=== PATIENT | male | born 1935 | race Caucasian/White ===

== ENCOUNTER 2017-03-10 11:07 | Outpatient (CLI) | payer MEDICARE | END 2017-03-10 11:08 | disposition home or self-care (01) | LOC: BICRAD 11:07 | PROVIDERS: ATTEND Family Medicine | DX: J18.0 Bronchopneumonia, unspecified organism (principal) | CPT/HCPCS: 36415; 71046; 80053; 85025 ==

== ENCOUNTER 2017-06-03 13:13 | Emergency (ER) | payer MEDICARE ==
--- NOTE | 2017-06-03 14:36 | RAD ---
CHEST ONE VIEW: HISTORY: Fever. Multiple falls. COMPARISON: None. FINDINGS: Normal cardiac silhouette. The pulmonary vessels and hilum are normal. The costophrenic angles are clear. The lungs are hyperinflated. There appears to be an infiltrate involving the inferior right upper lobe. No pneumothorax. Chronic changes in both shoulders. IMPRESSION: Right upper lobe infiltrate. Continued surveillance. POS: [facility]
--- NOTE | 2017-06-03 14:39 | CT ---
HEAD CT WITHOUT CONTRAST: 06/03/2017 HISTORY: Pain. Falls. Tremor. COMPARISON: None. TECHNIQUE: Serial axial CT imaging at 5 mm intervals from the vertex through the skull base without contrast. FINDINGS: Incidental note made of a cavum septum pellucidum. The imaged paranasal sinuses/mastoid air cells are well aerated. There is no displaced calvarial fra cture. There is atherosclerotic calcification of the cavernous carotid arteries. No intracranial hemorrhage, midline shift, or mass effect. There is mild prominence of the ventricul ar system, primarily the lateral ventricles. IMPRESSION: Mild prominence of the lateral ventricles, slightly out of proportion to the degree of cerebral volum e loss. This could potentially represent normal pressure hydrocephalus in the proper clinical settin g. There is no acute finding seen. POS: [facility]
[2017-06-03 14:49] LABS: INR-International Normal Ratio 1.2; PTT 34.8 SEC (22.9-36.1); Prothrombin Time 15.7 SEC (12.0-14.7)
[2017-06-03 14:55] LABS: #Eosinphils 0.1 thou/uL (0.0-0.7); #Lymphocytes 1.3 thou/uL (1.20-3.40); #Monocytes 0.7 thou/uL (0.11-0.59); #Neutrophils 5.1 thou/uL (1.40-6.50); %Eosinophils 0.8 % (0.0-10.0); %Lymphocytes 18.7 % (21.0-51.0); %Monocytes 9.5 % (0.0-10.0); %Neutrophils 70.9 % (42.0-75.0); Hemoglobin 10.7 g/dL (14.0-18.0); Mean Corpuscular HGB CONC 35.4 g/dL (32.0-36.0); Mean Corpuscular Hemoglobin 33.9 pg (27.0-31.0); Mean Corpuscular Volume 95.9 fl (80.0-94.0); Platelet Count 116 thou/uL (130-400); RBC Distribution Width 11.7 % (11.5-14.5); Red Blood Cell (RBC) Count 3.17 mill/uL (4.70-6.10); White Blood Cell (WBC) Count 7.2 thou/uL (4.8-10.8)
[2017-06-03 15:02] LABS: Anion Gap 11 mmol/L (10-20); BUN (Urea Nitrogen) 27 mg/dL (8.4-25.7); Calc. Creatinine Clearance 0 mL/min (70-130); Calcium 8.9 mg/dL (7.8-10.44); Carbon Dioxide 26 mmol/L (23-31); Chloride 101 mmol/L (98-107); Estimated GFR-MDRD 41; Glucose 172 mg/dL (83-110); Potassium 3.9 mmol/L (3.5-5.1); Sodium 134 mmol/L (136-145)
[2017-06-03 15:04] LABS: MDiff Complete? YES; PLT Morphology Comment Appears Decreased; Polychromasia SLIGHT = 2-3 cells (100X) (0-2/hpf)
[2017-06-03] MEDS ORDERED: Acetaminophen 500 MG TAB ONE (16:00)
[2017-06-03 16:03] LABS: Bilirubin Negative (Negative); Blood, Urine Small (Negative); Clarity Clear (Clear); Glucose, Urine (Dipstick) Negative (Negative); Leukocyte Negative (Negative); Nitrite Negative (Negative); Protein, Urine (Dipstick) 100 mg/dL (Neg-Trace); Urobilinogen 0.2 mg/dL (0.2-1.0); pH, Urine 6.5 (5.0-9.0)
[2017-06-03 16:05] LABS: Bacteria/HPF None Seen HPF (None Seen); Hyaline Casts/LPF 0-3 HYALINE CAST LPF (0-3 Hyaline); Pathc Cast-AUWi Flag 0.43 (0-2.49); Squamous Epithelial 0-3 HPF (0-3); WBC/HPF 0-3 HPF (0-3)
== END 2017-06-03 16:20 | disposition home or self-care (01) ==
LOC: ERS 13:13
DX: E86.0 Dehydration (principal); J18.9 Pneumonia, unspecified organism; I10 Essential (primary) hypertension; Z87.891 Personal history of nicotine dependence; Z79.899 Other long term (current) drug therapy
CPT/HCPCS: 36415; 70450; 71045; 80048; 81003; 81015; 85025; 85610; 85730; 99214; G0463

== ENCOUNTER 2017-11-17 15:14 | Outpatient (CLI) | payer MEDICARE ==
--- NOTE | 2017-11-17 17:57 | RAD ---
TWO VIEWS RIGHT KNEE: HISTORY: Pain. Multiple falls. FINDINGS: Moderate tricompartmental degenerative change. There is a small suprapatellar fusion. There is diff use bone demineralization. Definite fracture is not appreciated. Vascular calcifications are noted. IMPRESSION: No fracture. Additional findings as above. POS: [facility]
== END 2017-11-17 15:15 | disposition home or self-care (01) ==
LOC: BICRAD 15:14
PROVIDERS: ATTEND Physician Assistant
DX: M25.561 Pain in right knee (principal); R29.6 Repeated falls

== ENCOUNTER 2018-11-20 07:51 | Outpatient (CLI) | payer MEDICARE ==
--- NOTE | 2018-11-20 08:20 | RAD ---
TWO VIEW CHEST: COMPARISON: Reference is made to 06/03/2017. INDICATION: Cough. FINDINGS: The lungs are mildly hyperinflated. A small patchy opacity is seen at the left lung bas. Hemidiaphr agms are flattened. Cardiac silhouette is within normal limits of size. Pulmonary vasculature is st able. IMPRESSION: 1. Chronic obstructive pulmonary disease. 2. Mild focal patchy opacity at the left lung base which may e on the basis of atelectasis or scar. POS: [facility]
== END 2018-11-20 07:52 | disposition home or self-care (01) ==
LOC: BICRAD 07:51
PROVIDERS: ATTEND Family Medicine
DX: R05 Cough (principal); J44.9 Chronic obstructive pulmonary disease, unspecified
CPT/HCPCS: 36415; 71046; 81001; 83036; 83540; 83550; 84443; G0103

== ENCOUNTER 2019-03-30 10:10 | Outpatient (CLI) | payer MEDICARE, OTHER ==
--- NOTE | 2019-03-30 10:34 | ULT ---
US Abdominal Aorta HISTORY: Screening for abdominal aortic aneurysm COMPARISON: None. FINDINGS: Maximum AP diameter of the abdominal aorta is in the mid portion measuring about 1.9 cm IMPRESSION: No evidence of abdominal aortic aneurysm
== END 2019-03-30 10:11 | disposition home or self-care (01) ==
LOC: BICULT 10:10
PROVIDERS: ATTEND Family Medicine
DX: I71.4 Abdominal aortic aneurysm, without rupture (principal)
CPT/HCPCS: 76775

== ENCOUNTER 2019-11-26 13:41 | Outpatient (CLI) | payer MEDICARE, OTHER ==
--- NOTE | 2019-11-26 15:21 | CT ---
CT chest noncontrast HISTORY: Cough. FINDINGS: Lungs are hyperinflated. No focal inflammation evident. Minimal scattered peripheral inters titial thickening to the pleural surface. A 0.5 cm noncalcified nodule at the lateral aspect of the right upper lobe abuts the pleura. Small amount of mucous adherent to the right mid tracheal wall. Old chronic appearing injury to the right lateral mid ribs. There are degenerative changes throughout the thoracic spine. Chronic appearing compression of the L2 superior endplate is partially visualized on the inferior most images. There is prominent calcification within the arterial structures including narrowing of the lumen at t he origin of the left subclavian artery. IMPRESSION : No inflammation or other active pulmonary abnormalities are evident. Pulmonary hyperinflation. Prominent atherosclerosis. 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
== END 2019-11-26 13:42 | disposition home or self-care (01) ==
LOC: BICCT 13:41
PROVIDERS: ATTEND Family Medicine
DX: R05 Cough (principal); I70.90 Unspecified atherosclerosis; J98.4 Other disorders of lung
CPT/HCPCS: 71250

== ENCOUNTER 2019-12-06 19:03 | Inpatient (IN) | payer MEDICARE, OTHER ==
[2019-12-06] MEDS ORDERED: Vancomycin 1 GM/200 ML BAG ONE (19:52)
[2019-12-06] MEDS ORDERED: Guaifenesin DM 100-10/5 ML UDCUP PO PRN (20:10)
[2019-12-06 21:12] LABS: SARS-CoV-2 NAA Rapid Test Not Detected (NotDetected)
--- NOTE | 2019-12-06 22:03 | PDOC.EVN ---
Event Note - Event Note Event Note: [id number] HP dictated
[2019-12-07] MEDS ORDERED: Famotidine/PF 20 mg/2ml Vial ONE ×2 (00:20→11:43)
[2019-12-07] MEDS: Sodium Chloride 0.9% 1,000 ML IV SCH ×3 (00:37→20:10)
[2019-12-07] MEDS: Famotidine/PF 20 mg/2ml Vial SLOW IVP SCH ×3 (00:38→20:10)
--- NOTE | 2019-12-07 01:08 | HP ---
CHIEF COMPLAINT: Fever and ? possible sepsis. HISTORY OF PRESENT ILLNESS: Mr. Henderson is an 84-year-old male, who was transferred from [facility] for possible sepsis. Initially, the patient's vital signs at an outside hospital were normotensive with marked tachycardia at 102. The patient is a poor historian. As per records, the patient received 2.5 L of NS and 2 g of Rocephin and 500 mg of azithromycin for presumed ?? pneumonia. The patient was sent to our medical facility for possible sepsis or possible COVID-19. Workup in the emergency room, it was found that the patient's hemoglobin is low at 8.6, baseline around 10.3. Creatinine was 1.5 and glucose was 200 without anion gap. UA is negative. Chest x-ray is also unremarkable. COVID-19 test results are pending. The patient is being admitted to hospital for further management. PAST MEDICAL HISTORY: 1. Hyperparathyroidism. 2. Hyperlipidemia. 3. Hypertension. PAST SURGICAL HISTORY: Bilateral hand surgery. SOCIAL HISTORY: Denies alcohol use. Denies drug use. He is a former tobacco user. He used to smoke cigarettes. FAMILY HISTORY: Reviewed, noncontributory. HOME MEDICATIONS: Please see home medication reconciliation form for updated medications. ALLERGIES: ALLERGIC TO PENICILLIN. REVIEW OF SYSTEMS: Review of 14 systems negative except what is mentioned in history of present illness. PHYSICAL EXAMINATION: GENERAL: The patient is awake, alert, does not appear to be in acute distress. VITAL SIGNS: Blood pressure is 176/71, pulse is 82, respiratory rate is 18, temperature is 98.7, oxygen saturation is 98% on room air. HEAD AND NECK: Normocephalic, atraumatic. NECK: Supple. No JVD. CHEST: Fair bilateral air entry. HEART: S1, S2. Regular. ABDOMEN: Soft, nontender. Bowel sounds present. NEUROLOGIC: Awake, alert, hard of hearing, moving extremities. PSYCH: Unable to assess. EXTREMITIES: No clubbing or cyanosis. LABORATORY DATA: WBC 11.4, hemoglobin 8.6, MCV is 92, platelets 216. Chemistry; sodium 141, potassium 4.2, BUN is 29, creatinine 1.52. COVID-19 test is negative. UA is unremarkable. ASSESSMENT: 1. Suspected sepsis?? no obvious source at this time. 2. Anemia. The patient's hemoglobin 10.7 and currently is 8.6, we will monitor. 3. Acute kidney injury. 4. Hypertension. 5. Hyperlipidemia. 6. History of hyperparathyroidism. PLAN: 1. Admit. 2. IV fluid hydration. 3. The patient was given IV antibiotics in the emergency room. At this time, the patient does not appear septic. His vitals are stable. We will continue to monitor overnight. Reassess the patient in a.m. 4. Monitor kidney function and urine output. 5. Monitor hemoglobin and hematocrit. 6. Reconcile home medications. 7. DVT prophylaxis as appropriate. 8. Expected length of stay, at least 1 midnight if the patient is stable. Job ID: [id number]
[2019-12-07 04:38] LABS: #Eosinphils 0.1 thou/uL (0.0-0.7); #Lymphocytes 1.1 thou/uL (1.20-3.40); #Monocytes 0.9 thou/uL (0.11-0.59); #Neutrophils 8.6 thou/uL (1.40-6.50); %Basophils 0.3 % (0.0-1.0); %Eosinophils 0.6 % (0.0-10.0); %Lymphocytes 9.9 % (21.0-51.0); %Monocytes 8.3 % (0.0-10.0); Hemoglobin 8.7 g/dL (14.0-18.0); Mean Corpuscular HGB CONC 32.7 g/dL (32.0-36.0); Mean Corpuscular Hemoglobin 29.9 pg (27.0-31.0); Mean Corpuscular Volume 91.5 fL (78.0-98.0); Mean Platelet Volume 8.2 fL (7.4-10.4); Platelet Count 209 thou/uL (130-400); RBC Distribution Width 13.8 % (11.5-14.5); White Blood Cell (WBC) Count 10.6 thou/uL (4.8-10.8)
[2019-12-07 04:56] LABS: ALT (SGPT) 13 U/L (8-55); AST (SGOT) 19 U/L (5-34); Albumin 2.9 g/dL (3.4-4.8); Alkaline Phosphatase 67 U/L (40-110); Anion Gap 12 mmol/L (10-20); BUN (Urea Nitrogen) 22 mg/dL (8.4-25.7); Bilirubin, Total 0.5 mg/dL (0.2-1.2); Calc. Creatinine Clearance 0 mL/min (70-130); Calcium 8.4 mg/dL (7.8-10.44); Carbon Dioxide 22 mmol/L (23-31); Chloride 111 mmol/L (98-107); Estimated GFR-MDRD 66; Globulin 3.2 g/dL (2.4-3.5); Glucose 147 mg/dL (83-110); Protein, Total 6.1 g/dL (5.8-8.1); Sodium 141 mmol/L (136-145)
--- NOTE | 2019-12-07 12:22 | PDOC.HOSPP ---
- Subjective Encounter Date: 12/07/19 Encounter Time: 10:00 Subjective: feels better, has cough but no sputum production no trouble passing urine no chest pain or palp no diarrhea or nausea says he feels weak overall and has not ambulated much from last 2 days - Objective Result Diagrams: 12/07/19 04:23 12/07/19 04:23 Hospitalist ROS - Medication Medications: Active Medications Generic Name Dose Route Start Last Admin Trade Name Freq PRN Reason Stop Dose Admin Famotidine 20 mg 12/06/19 21:00 12/07/19 12:16 Famotidine/Pf 20 Mg/2ml Vial SLOW IVP 20 mg Q12HR PIERCE Administration Sodium Chloride 1,000 mls @ 75 mls/hr 12/06/19 20:15 12/07/19 11:42 Normal Saline 0.9% IV 1,000 mls .[id number] PIERCE Administration - Exam General Appearance: awake alert Eye: PERRL, anicteric sclera ENT: no oropharyngeal lesions, moist mucosa Neck: supple, no JVD Heart: RRR, no murmur Respiratory: no wheezes, no rales Gastrointestinal: soft, non-tender, non-distended, normal bowel sounds Extremities: no cyanosis, no edema Neurological: cranial nerve grossly intact, no focal deficits Hosp A/P (1) Moderate dehydration Code(s): E86.0 - DEHYDRATION Status: Resolved (2) TALON (acute kidney injury) Code(s): N17.9 - ACUTE KIDNEY FAILURE, UNSPECIFIED Status: Acute (3) Fever Code(s): R50.9 - FEVER, UNSPECIFIED Status: Acute Qualifiers: Fever type: unspecified Qualified Code(s): R50.9 - Fever, unspecified (4) HTN (hypertension) Code(s): I10 - ESSENTIAL (PRIMARY) HYPERTENSION Status: Chronic Qualifiers: Hypertension type: essential hypertension Qualified Code(s): I10 - Essential (primary) hypertension (5) Anemia Code(s): D64.9 - ANEMIA, UNSPECIFIED Status: Acute Qualifiers: Anemia type: unspecified type Qualified Code(s): D64.9 - Anemia, unspecified (6) Moderate protein malnutrition Code(s): E44.0 - MODERATE PROTEIN-CALORIE MALNUTRITION Status: Chronic (7) FTT (failure to thrive) in adult Status: Chronic - Plan iron studies await culture results, no obvious source echo h/h this evening, no bleeding per patient hemostable will f/u
[2019-12-07 13:38] VITALS: BMI 21.4
[2019-12-07] MEDS: Acetaminophen 325 MG TAB PO PRN (20:14)
[2019-12-08] MEDS: Famotidine/PF 20 mg/2ml Vial SLOW IVP SCH ×2 (08:29→21:54)
[2019-12-08] MEDS: Sodium Chloride 0.9% 1,000 ML IV SCH ×2 (08:32→21:55)
[2019-12-08] MEDS ORDERED: FLU VACC QS2020-21(65YR UP)/PF 240 MCG/0.7 ML SYRINGE IM ONE (09:00)
--- NOTE | 2019-12-08 12:50 | PDOC.HOSPP ---
- Subjective Encounter Date: 12/08/19 Encounter Time: 08:00 Subjective: c/o pain in left knee, cannot flex it, says its more on top of knee area no sob, cough or abd pain has not ambulated yet - Objective Vital Signs & Weight: Vital Signs (12 hours) Temp Pulse Resp BP Pulse Ox 12/08/19 11:55 99.0 F 93 20 190/80 H 20 L 12/08/19 08:00 99.6 F 97 20 174/70 H 99 12/08/19 05:16 97.8 F 96 20 183/71 H 99 Weight Admit Weight 141 lb 3 oz Weight 141 lb 3 oz I&O: 12/07/19 12/08/19 12/09/19 06:59 06:59 06:59 Intake Total 1220 240 Output Total 350 Balance 870 240 Result Diagrams: 12/07/19 04:23 12/07/19 04:23 Hospitalist ROS - Medication Medications: Active Medications Generic Name Dose Route Start Last Admin Trade Name Freq PRN Reason Stop Dose Admin Acetaminophen 650 mg 12/06/19 20:10 12/07/19 20:14 Acetaminophen 325 Mg Tab PO 650 mg Q4H PRN Administration Headache/Fever/Mild Pain (1-3) Famotidine 20 mg 12/06/19 21:00 12/08/19 08:29 Famotidine/Pf 20 Mg/2ml Vial SLOW IVP 20 mg Q12HR PIERCE Administration Sodium Chloride 1,000 mls @ 75 mls/hr 12/06/19 20:15 12/08/19 08:32 Normal Saline 0.9% IV 1,000 mls .[id number] PIERCE Administration - Exam General Appearance: awake alert Eye: PERRL, anicteric sclera ENT: no oropharyngeal lesions, moist mucosa Neck: supple, no JVD Heart: RRR, no murmur Respiratory: no wheezes, no rales Gastrointestinal: soft, non-tender, non-distended, normal bowel sounds Extremities: no edema Extremities - other findings: left knee is tender to touch and a bit warm, may have mild effusion Neurological: cranial nerve grossly intact, no focal deficits Psychiatric: A&O x 3 Hosp A/P (1) Fever Code(s): R50.9 - FEVER, UNSPECIFIED Status: Acute Qualifiers: Fever type: unspecified Qualified Code(s): R50.9 - Fever, unspecified (2) Moderate dehydration Code(s): E86.0 - DEHYDRATION Status: Resolved (3) TALON (acute kidney injury) Code(s): N17.9 - ACUTE KIDNEY FAILURE, UNSPECIFIED Status: Resolved (4) HTN (hypertension) Code(s): I10 - ESSENTIAL (PRIMARY) HYPERTENSION Status: Chronic Qualifiers: Hypertension type: essential hypertension Qualified Code(s): I10 - Essential (primary) hypertension (5) Anemia Code(s): D64.9 - ANEMIA, UNSPECIFIED Status: Chronic Qualifiers: Anemia type: unspecified type Qualified Code(s): D64.9 - Anemia, unspecified (6) Moderate protein malnutrition Code(s): E44.0 - MODERATE PROTEIN-CALORIE MALNUTRITION Status: Chronic (7) FTT (failure to thrive) in adult Status: Chronic - Plan iron studies fever of 100, await culture results, ?left knee bursitis/septic arthritis/pseudogout echo no bleeding per patient hemostable start on levaquin in view of persistent off and on fever. d/w ortho, knee xrays
[2019-12-08 14:23] LABS: #Lymphocytes 1.3 thou/uL (1.20-3.40); #Neutrophils 12.1 thou/uL (1.40-6.50); %Eosinophils 0.2 % (0.0-10.0); %Lymphocytes 8.8 % (21.0-51.0); %Monocytes 7.1 % (0.0-10.0); %Neutrophils 83.9 % (42.0-75.0); Mean Corpuscular HGB CONC 33.7 g/dL (32.0-36.0); Mean Corpuscular Hemoglobin 30.8 pg (27.0-31.0); Mean Corpuscular Volume 91.5 fL (78.0-98.0); Mean Platelet Volume 8.2 fL (7.4-10.4); Platelet Count 258 thou/uL (130-400); RBC Distribution Width 13.7 % (11.5-14.5); Red Blood Cell (RBC) Count 3.23 mill/uL (4.70-6.10); White Blood Cell (WBC) Count 14.4 thou/uL (4.8-10.8)
[2019-12-08 14:43] LABS: ALT (SGPT) 16 U/L (8-55); AST (SGOT) 24 U/L (5-34); Albumin 2.9 g/dL (3.4-4.8); Alkaline Phosphatase 71 U/L (40-110); Anion Gap 13 mmol/L (10-20); BUN (Urea Nitrogen) 20 mg/dL (8.4-25.7); Bilirubin, Total 0.6 mg/dL (0.2-1.2); Calc. Creatinine Clearance 45 mL/min (70-130); Calcium 8.5 mg/dL (7.8-10.44); Carbon Dioxide 24 mmol/L (23-31); Chloride 105 mmol/L (98-107); Estimated GFR-MDRD 63; Globulin 3.5 g/dL (2.4-3.5); Glucose 158 mg/dL (83-110); Iron 13 ug/dL (65-175); Iron Binding Capacity, Total 144 mcg/dL (261-462); Potassium 3.7 mmol/L (3.5-5.1); Protein, Total 6.4 g/dL (5.8-8.1); Sodium 138 mmol/L (136-145)
[2019-12-08] MEDS: Ibuprofen 200 MG TAB PO SCH ×2 (14:58→21:54)
[2019-12-08 15:08] LABS: Ferritin 260.25 ng/mL (22-322)
--- NOTE | 2019-12-08 17:49 | RAD ---
LEFT KNEE FOUR VIEWS: 12/08/19 HISTORY: Knee pain. There are marked arthritic changes of the knee with tricompartment degenerative changes and chondroca lcinosis. There is a deformity to the superolateral aspect of the patella. This is not felt to repres ent an acute injury. 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 No joint effusion. IMPRESSION: Marked arthritic change of the knee. No acute injury. POS: OFF
--- NOTE | 2019-12-08 17:53 | RAD ---
LEFT KNEE THREE VIEWS: 12/08/19 HISTORY: Knee pain. There are moderate arthritic changes of the knee. Medial compartment narrowing. Degenerative spur for mation of the patellofemoral joint space. There is a joint effusion present. The bones are diffusely demineralized. I do not appreciate any fracture. Atherosclerotic changes are noted. Some soft tissue swelling is seen anterior to the knee. IMPRESSION: Joint effusion with moderate arthritic change. No definite acute injury. Chondrocalcinosis. POS: OFF
[2019-12-09] MEDS: Famotidine/PF 20 mg/2ml Vial SLOW IVP SCH (08:33)
[2019-12-09] MEDS: Sodium Chloride 0.9% 1,000 ML IV SCH (08:34)
[2019-12-09] MEDS: Ibuprofen 200 MG TAB PO SCH (08:45)
[2019-12-09] MEDS ORDERED: Iopamidol-370 76% 500 ML 1 ML ONE (10:10)
--- NOTE | 2019-12-09 10:13 | CON ---
DATE OF CONSULTATION: 12/09/2019 REASON FOR CONSULTATION: Evaluate for bilateral septic knees. REQUESTING PHYSICIAN: [facility]. CONSULTING PHYSICIAN: Carter Springer. HISTORY OF PRESENT ILLNESS: This is an 84-year-old male, who was transferred here for admission from [facility] for possible sepsis. The patient has been worked up by the hospitalist group. He has some complaints of bilateral knee pain and we were asked to see the patient to further evaluate for this. The patient was seen yesterday briefly before obtaining knee x-rays. At that time, he told me he has had ongoing bilateral knee pain for a number of years. This is not any worse than normal currently. He states that he does not walk much, and when he does ambulate he has to have assistance with some sort of device, mainly a cane or a walker. Also reports he has a known history of severe arthritis in both knees. Today, the patient has been seen again. He reports some improvement since yesterday. States knee pain worse in the last couple of weeks. Knee x-rays have been performed which has also been reviewed by our service. He describes pain is pretty much equal on both knees. One is not greater than the other. He has not ambulated much since he has been in the hospital. PAST MEDICAL HISTORY: Significant for hyperparathyroidism, hyperlipidemia, and hypertension. PAST SURGICAL HISTORY: Bilateral hand surgery. SOCIAL HISTORY: The patient denies any alcohol or drug use. He is a former smoker. He ambulates with a cane majority of the time. FAMILY HISTORY: Reviewed and noncontributory. ALLERGIES: PENICILLIN. REVIEW OF SYSTEMS: Ten-point review of systems conducted and negative otherwise stated above. PHYSICAL EXAMINATION: VITAL SIGNS: Current vital signs including temperature of 98.6, pulse of 86, respiratory rate of 18, O2 saturation of 99% on room air, and blood pressure 173/66. GENERAL: The patient is awake and alert. He is pleasant and cooperative with exam at this time. He answers all questions appropriately. HEENT: Head is normocephalic and atraumatic. NECK: Supple. Trachea midline. Breathing is nonlabored. EXTREMITIES: Evaluation of bilateral lower extremities shows flexion contractures bilaterally. On the left, the patient has a small palpable knee effusion. No overlying erythema. This is mildly tender to palpation. He is able to flex approximately 30 degrees. He is able to perform a straight leg raise. He does have a flexion contracture to approximately 30 degrees. Distal neurovascular status intact. On the right lower extremity, the patient also has a flexion contracture around 30 degrees. He has a large palpable osteophyte on the superior lateral border of the patella. This is nontender to palpation. He has very little motion in this knee as well. No erythema. No palpable joint effusion. Distal neurovascular status intact. He is able to perform a straight leg raise. RADIOGRAPHIC IMAGING: Reviewed at this time including views of both knees demonstrate views of the right knee which show marked tricompartmental osteoarthritis with [id number] disease. There is chondrocalcinosis. 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 No acute findings. Views of the left knee also show marked arthritis mainly in the medial compartment. There is also patellofemoral joint osteoarthritis and a joint effusion present. No acute findings. ASSESSMENT: Bilateral knee pain in a patient admitted for sepsis. PLAN: At this time, the patient does appear to have severe osteoarthritis in both knees. He does have a joint effusion present on the left, however, I believe this is likely related to his osteoarthritis. He does not show signs of septic arthritis at this time. He has had long-standing knee pain. I do not believe this is the source of his fever at this time. He may continue to ambulate as tolerated with assistance. Orthopedics will sign off for now, but if there are future concerns, please reconsult our group. Job ID: [id number] MTDD
--- NOTE | 2019-12-09 10:34 | CT ---
EXAM: CT chest, abdomen, and pelvis with IV contrast: HISTORY: Fever, unknown source. COMPARISON: Noncontrast CT thorax on 11/26/2019 FINDINGS: CT THORAX: Lungs: A pleural-based 5 mm pulmonary nodule lateral aspect right upper lobe is again seen and stable in appearance. No additional discrete pulmonary nodule or mass is seen. No consolidation is identified. Pleura: Tiny bilateral pleural effusions and associated passive atelectasis are now seen. Lymph nodes: No enlarged lymph nodes are seen by CT size criteria. Nonspecific mild increase in bilat eral hilar lymph nodes is noted but is a stable finding. Mediastinum: Vascular calcifications are seen in the coronary arteries as well as involving the thora cic aorta: Prominent vascular calcifications involving the origin and proximal left subclavian artery. There is a small pericardial effusion which has mildly increased compared to prior exam. Chest wall: No abnormalities CT ABDOMEN AND PELVIS: Liver: Within normal limits. Gallbladder: Decompressed.\ Pancreas: Within normal limits. Spleen: Within normal limits. Adrenal glands: Within normal limits. Kidneys: Within normal limits. Urinary Bladder: The urinary bladder is unremarkable. Reproductive organs: Within normal limits for patient's age. Bowel: Small to moderate amount retained fecal material seen in the ascending and transverse colon. L oops of small bowel are normal in caliber. Adenopathy:No lymphadenopathy within the abdomen or pelvis. Peritoneum: Small amount of free fluid is seen in a presacral location with a minimal adjacent strand ing as well. There is minimal amount of free fluid in each paracolic gutter. Nonspecific perinephric stranding is seen which is symmetric in appearance. Abdominal wall: No abnormalities seen. Osseous structures: Indeterminate age wedge-shaped compression fracture L2 vertebral body with approx imately 40-50% loss of height anteriorly. Multilevel degenerative changes are seen in the spine. Bilateral glenohumeral osteoarthropathy is present. IMPRESSION: 1. Minimal bilateral pleural effusions and associated passive atelectasis. 2. Small pericardial effusion. 3. Stable approximately 5 mm right upper lobe pleural-based pulmonary nodule. 4. Small amount of fluid and stranding in the presacral location with minimal fluid in each paracolic gutter. 5. Prominent vascular calcifications involving the coronary arteries as well as the thoracic and abdo sunitha aorta and origin of the great vessels. 6. Indeterminate age compression fracture L2 vertebral body. This compression fracture was partially imaged on study of 11/26/2019.
--- NOTE | 2019-12-09 11:59 | PDOC.HOSPP ---
- Subjective Encounter Date: 12/09/19 Encounter Time: 07:15 Subjective: knee pain is better today including left no cough or abd pain he fell yesterday while trying to fel[place] to other side of his commode to take a phone call - Objective Vital Signs & Weight: Vital Signs (12 hours) Temp Pulse Resp BP Pulse Ox 12/09/19 08:00 99 12/09/19 07:43 98.6 F 86 18 173/66 H 99 12/09/19 04:00 98.3 F 83 20 154/74 H 99 12/09/19 01:11 159/66 H 12/09/19 00:00 97.9 F 79 20 170/77 H 99 Weight Admit Weight 141 lb 3 oz Weight 141 lb 3 oz I&O: 12/08/19 12/09/19 12/10/19 06:59 06:59 06:59 Intake Total 1220 720 Output Total 350 620 Balance 870 100 Result Diagrams: 12/08/19 13:59 12/08/19 13:59 Hospitalist ROS - Medication Medications: Active Medications Generic Name Dose Route Start Last Admin Trade Name Freq PRN Reason Stop Dose Admin Acetaminophen 650 mg 12/06/19 20:10 12/07/19 20:14 Acetaminophen 325 Mg Tab PO 650 mg Q4H PRN Administration Headache/Fever/Mild Pain (1-3) Famotidine 20 mg 12/06/19 21:00 12/09/19 08:33 Famotidine/Pf 20 Mg/2ml Vial SLOW IVP 20 mg Q12HR PIERCE Administration Sodium Chloride 1,000 mls @ 75 mls/hr 12/06/19 20:15 12/09/19 08:34 Normal Saline 0.9% IV 1,000 mls .[id number] PIERCE Administration Ibuprofen 400 mg 12/08/19 15:00 12/09/19 08:45 Ibuprofen 200 Mg Tab PO 400 mg TID PIERCE Administration Levofloxacin 500 mg 12/09/19 06:00 12/09/19 05:47 Levofloxacin 500 Mg Tab PO 500 mg 0600 PIERCE Administration Pantoprazole Sodium 40 mg 12/09/19 09:00 12/09/19 08:45 Pantoprazole 40 Mg Tab PO 40 mg DAILY PIERCE Administration Sodium Chloride 10 ml 12/08/19 21:00 12/09/19 08:35 Flush - Normal Saline 10 Ml Syringe IVF Not Given Q12HR PIERCE Sodium Chloride 10 ml 12/08/19 13:00 12/08/19 21:54 Flush - Normal Saline 10 Ml Syringe IVF 10 ml PRN PRN Administration Saline Flush - Exam General Appearance: awake alert Eye: PERRL, anicteric sclera ENT: no oropharyngeal lesions, moist mucosa Neck: supple, no JVD Heart: RRR, no murmur Respiratory: no wheezes, no rales, no ronchi Gastrointestinal: soft, non-tender, non-distended, normal bowel sounds Extremities: no cyanosis, no edema Neurological: cranial nerve grossly intact, no focal deficits Psychiatric: normal affect, A&O x 3 Hosp A/P (1) Fever Code(s): R50.9 - FEVER, UNSPECIFIED Status: Acute Qualifiers: Fever type: unspecified Qualified Code(s): R50.9 - Fever, unspecified (2) Moderate dehydration Code(s): E86.0 - DEHYDRATION Status: Resolved (3) TALON (acute kidney injury) Code(s): N17.9 - ACUTE KIDNEY FAILURE, UNSPECIFIED Status: Resolved (4) HTN (hypertension) Code(s): I10 - ESSENTIAL (PRIMARY) HYPERTENSION Status: Chronic Qualifiers: Hypertension type: essential hypertension Qualified Code(s): I10 - Essential (primary) hypertension (5) Anemia Code(s): D64.9 - ANEMIA, UNSPECIFIED Status: Chronic Qualifiers: Anemia type: unspecified type Qualified Code(s): D64.9 - Anemia, unspecified (6) Moderate protein malnutrition Code(s): E44.0 - MODERATE PROTEIN-CALORIE MALNUTRITION Status: Chronic (7) FTT (failure to thrive) in adult Status: Chronic - Plan fever of 99, blood cultures are -ve, urine culture is contaminated. xrays of both knees show signs of severe OA with pseudogout echo no bleeding per patient hemostable started on levaquin in view of persistent off and on fever on 12/06. CT chest/abd/pelvis is -ve for any source of fever, has stool in colon dc plan in am if he ambulates with PT if not will need rehab/swing bed
[2019-12-09] MEDS ORDERED: Ibuprofen 200 MG TAB PO PRN (12:03)
[2019-12-09] MEDS: hydrALAZINE 25 MG TAB PO SCH (20:31)
[2019-12-09] MEDS: Acetaminophen 325 MG TAB PO PRN (20:31)
[2019-12-10 05:27] LABS: #Eosinphils 0.1 thou/uL (0.0-0.7); #Monocytes 0.7 thou/uL (0.11-0.59); #Neutrophils 7.9 thou/uL (1.40-6.50); %Eosinophils 0.9 % (0.0-10.0); %Lymphocytes 10.5 % (21.0-51.0); %Monocytes 7.2 % (0.0-10.0); %Neutrophils 81.4 % (42.0-75.0); Hemoglobin 8.9 g/dL (14.0-18.0); Mean Corpuscular HGB CONC 33.4 g/dL (32.0-36.0); Mean Corpuscular Hemoglobin 30.4 pg (27.0-31.0); Mean Platelet Volume 8.2 fL (7.4-10.4); Platelet Count 205 thou/uL (130-400); RBC Distribution Width 13.4 % (11.5-14.5); Red Blood Cell (RBC) Count 2.93 mill/uL (4.70-6.10); White Blood Cell (WBC) Count 9.7 thou/uL (4.8-10.8)
[2019-12-10 05:51] LABS: ALT (SGPT) 24 U/L (8-55); AST (SGOT) 30 U/L (5-34); Albumin 2.5 g/dL (3.4-4.8); Alkaline Phosphatase 67 U/L (40-110); Anion Gap 11 mmol/L (10-20); BUN (Urea Nitrogen) 21 mg/dL (8.4-25.7); Bilirubin, Total 0.4 mg/dL (0.2-1.2); Calc. Creatinine Clearance 46 mL/min (70-130); Carbon Dioxide 23 mmol/L (23-31); Chloride 107 mmol/L (98-107); Estimated GFR-MDRD 64; Glucose 111 mg/dL (83-110); Potassium 3.4 mmol/L (3.5-5.1); Protein, Total 5.5 g/dL (5.8-8.1); Sodium 138 mmol/L (136-145)
[2019-12-10] MEDS ORDERED: Ondansetron PF 4 MG/2 ML Vial IVP PRN (07:49)
[2019-12-10] MEDS ORDERED: hydrALAZINE 20 MG/ML VIAL SLOW IVP PRN (07:49)
[2019-12-10] MEDS ORDERED: Zolpidem Tartrate 5 MG TAB PO PRN (07:49)
[2019-12-10] MEDS ORDERED: Loperamide HCl 2 MG CAP PO PRN (07:49)
[2019-12-10] MEDS ORDERED: Calcium Carbonate 500 MG ChewTAB PO PRN (07:49)
[2019-12-10] MEDS ORDERED: Bisacodyl 10 MG SUPP PR PRN (07:49)
[2019-12-10] MEDS ORDERED: Loratadine 10 MG TAB PO PRN (07:49)
[2019-12-10] MEDS ORDERED: Cepastat Lozenges 1 LOZ PO PRN (07:49)
[2019-12-10] MEDS ORDERED: Senokot S 8.6-50 MG TAB PO PRN (07:49)
[2019-12-10] MEDS ORDERED: Sodium Chloride 0.65% Nasal 44 ML BOT EA NARE PRN (07:49)
[2019-12-10] MEDS ORDERED: Ondansetron ODT 4 MG TAB PO PRN (07:49)
[2019-12-10] MEDS ORDERED: Diabetic Tussin 200 MG/10 ML UDCUP PO PRN (07:49)
[2019-12-10] MEDS: hydrALAZINE 25 MG TAB PO SCH ×2 (07:59→19:57)
[2019-12-10] MEDS: Atenolol 50 MG TAB PO SCH (07:59)
[2019-12-10] MEDS: Amlodipine 10 MG TAB PO SCH (07:59)
[2019-12-10] MEDS: Multivitamin W/ Minerals 1 TAB PO SCH (08:00)
[2019-12-10] MEDS ORDERED: Potassium Chloride 20 MEQ TAB PO SCH (08:00)
[2019-12-10] MEDS ORDERED: Famotidine 20 MG TAB PO SCH (09:00)
--- NOTE | 2019-12-10 11:31 | DIS ---
DATE OF ADMISSION: 12/06/2019 DATE OF DISCHARGE: 12/10/2019 PRIMARY CARE PHYSICIAN: Dr. Randal Webster. DISCHARGE DISPOSITION: Home. PRIMARY DISCHARGE DIAGNOSES: 1. Sepsis, unclear source, resolved. 2. Acute kidney injury, resolved. 3. Bilateral knee osteoarthritis. 4. Moderate dehydration, corrected. SECONDARY DISCHARGE DIAGNOSES: 1. Failure to thrive in adult. 2. Moderate protein calorie malnutrition. 3. Hypertension. 4. Chronic disease. 5. Anemia. PRIMARY PROCEDURE/OPERATION: None. RADIOLOGICAL INVESTIGATION: Knee x-ray showed bilateral osteoarthritis. CT chest, abdomen, and pelvis showed minimal bilateral pleural effusion and atelectasis, small pericardial effusion. Vascular calcification, L2 vertebral body compression fracture, which is old. SIGNIFICANT LABORATORY DATA: WBC 9.7, hemoglobin 8.9, and platelets are 205. Sodium 138, potassium 3.4, BUN 21, creatinine 1.10, calcium 8.0. Liver enzymes normal. Albumin 2.5. Folate and B12 normal. Ferritin 260. COVID-19 negative. Blood culture negative. Urine culture negative. Influenza screen negative. DISCHARGE MEDICATIONS: 1. Hydralazine 10 mg twice daily. 2. Atenolol 50 mg daily. 3. Lipitor 40 mg p.o. daily. 4. Lisinopril 20 mg daily. 5. Multivitamin one tablet p.o. daily. 6. Amlodipine 10 mg daily. 7. Levaquin 500 mg p.o. daily for three more days. CONTRAINDICATION: None. CODE STATUS: Full code. INPATIENT [employer] DIRECTOR: Orthopedic physician was consulted for knee effusion. TEST RESULTS PENDING ON DISCHARGE: None. ALLERGIES: PENICILLIN. DISCHARGE PLAN: Post hospital, the patient will follow up with primary care physician. HOSPITAL COURSE: An 84-year-old male with above-mentioned medical problem, who was admitted by Dr. Luis Fernando Carter. Please see his H and P for further details. The patient was admitted with fever. He was suspected for sepsis. His source of infection was not clear. On admission, he was tachycardic. He was also found with volume depletion. He had mild acute kidney injury. He is COVID-19, came back negative. While in the hospital, we also did a CT chest, abdomen, and pelvis, which was negative for any acute process or any infection. His culture remained negative. Urine culture remained negative. While in the hospital, he was empirically treated with levofloxacin to complete course of treatment, we provided another three days of antibiotic therapy. The patient was evaluated by Physical Therapy. At this point, patient doing clinically better. He wants to go home. He does not need any help at home. If he is able to ambulate by himself, then we will consider discharge. If the patient is not able to ambulate, then we will consider discharging to inpatient swing bed or rehab facility. Patient was not able to ambulate by himself so we are planning to send him to shelter home versus swing bed versus rehab. Job ID: [id number] [facility]
--- NOTE | 2019-12-10 11:45 | PDOC.HOSPP ---
- Subjective Encounter Date: 12/10/19 Encounter Time: 09:45 Subjective: Patient seen and examined. No new complaints. No overnight events - Objective Vital Signs & Weight: Vital Signs (12 hours) Temp Pulse Resp BP BP Pulse Ox 12/10/19 07:59 90 164/73 H 12/10/19 07:55 98.3 F 96 16 144/96 H 99 12/09/19 23:50 92 16 179/72 H 98 Weight Admit Weight 141 lb 3 oz Weight 141 lb 3 oz I&O: 12/09/19 12/10/19 12/11/19 06:59 06:59 06:59 Intake Total 720 480 Output Total 620 Balance 100 480 Result Diagrams: 12/10/19 05:16 12/10/19 05:16 Hospitalist ROS - Review of Systems ENT: denies: ear pain, ear discharge, nose pain, nose discharge, nose congestion, mouth pain, mouth swelling, throat pain, throat swelling, other Respiratory: denies: cough, dry, shortness of breath, hemoptysis, SOB with excertion, pleuritic pain, sputum, wheezing, other Cardiovascular: denies: chest pain, palpitations, orthopnea, paroxysmal noc. dyspnea, edema, light headedness, other Gastrointestinal: denies: nausea, vomiting, abdominal pain, diarrhea, constipation, melena, hematochezia, other Genitourinary: denies: dysuria, frequency, incontinence, hematuria, retention, other Musculoskeletal: denies: neck pain, shoulder pain, arm pain, back pain, hand pain, leg pain, foot pain, other - Medication Medications: Active Medications Generic Name Dose Route Start Last Admin Trade Name Wildq PRN Reason Stop Dose Admin Acetaminophen 650 mg 12/06/19 20:10 12/09/19 20:31 Acetaminophen 325 Mg Tab PO 650 mg Q4H PRN Administration Headache/Fever/Mild Pain (1-3) Amlodipine Besylate 10 mg 12/10/19 09:00 12/10/19 07:59 Amlodipine 10 Mg Tab PO 10 mg DAILY PIERCE Administration Atenolol 50 mg 12/10/19 09:00 12/10/19 07:59 Atenolol 50 Mg Tab PO 50 mg DAILY PIERCE Administration Hydralazine HCl 50 mg 12/09/19 21:00 12/10/19 07:59 Hydralazine 25 Mg Tab PO 50 mg BID PIERCE Administration Iron/Minerals/Multivitamins 1 tab 12/10/19 09:00 12/10/19 08:00 Multivitamin W/ Minerals 1 Tab PO 1 tab DAILY PIERCE Administration Levofloxacin 500 mg 12/09/19 06:00 12/10/19 06:39 Levofloxacin 500 Mg Tab PO 500 mg 0600 PIERCE Administration Pantoprazole Sodium 40 mg 12/09/19 09:00 12/10/19 08:00 Pantoprazole 40 Mg Tab PO 40 mg DAILY PIERCE Administration Sodium Chloride 10 ml 12/08/19 21:00 12/10/19 08:00 Flush - Normal Saline 10 Ml Syringe IVF 10 ml Q12HR PIERCE Administration Sodium Chloride 10 ml 12/08/19 13:00 12/08/19 21:54 Flush - Normal Saline 10 Ml Syringe IVF 10 ml PRN PRN Administration Saline Flush - Exam General Appearance: NAD, awake alert Eye: PERRL, anicteric sclera ENT: normocephalic atraumatic, no oropharyngeal lesions Neck: supple, symmetric, no JVD, no thyromegaly Heart: RRR, no murmur, no gallops, no rubs Respiratory: CTAB, no wheezes, no rales, no ronchi Gastrointestinal: soft, non-tender, non-distended, normal bowel sounds Extremities: no cyanosis, no clubbing Skin: normal turgor, no lesions Neurological: no focal deficits Musculoskeletal: normal tone, normal strength Psychiatric: normal affect, normal behavior Hosp A/P (1) Fever Code(s): R50.9 - FEVER, UNSPECIFIED Status: Resolved Qualifiers: Fever type: unspecified Qualified Code(s): R50.9 - Fever, unspecified (2) Anemia Code(s): D64.9 - ANEMIA, UNSPECIFIED Status: Chronic Qualifiers: Anemia type: unspecified type Qualified Code(s): D64.9 - Anemia, unspecified (3) FTT (failure to thrive) in adult Status: Chronic (4) HTN (hypertension) Code(s): I10 - ESSENTIAL (PRIMARY) HYPERTENSION Status: Chronic Qualifiers: Hypertension type: essential hypertension Qualified Code(s): I10 - Essential (primary) hypertension (5) Moderate protein malnutrition Code(s): E44.0 - MODERATE PROTEIN-CALORIE MALNUTRITION Status: Chronic (6) TALON (acute kidney injury) Code(s): N17.9 - ACUTE KIDNEY FAILURE, UNSPECIFIED Status: Resolved (7) Moderate dehydration Code(s): E86.0 - DEHYDRATION Status: Resolved - Plan old records reviewed/req, continue antibiotics, PT/OT, licensed clinical social worker Patient is not able to ambulate by himself, patient will need placement We will cancel discharge and let case resolution specialist arrange rehab versus skilled nu rsing home versus swing bed.
[2019-12-10] MEDS: Atorvastatin Calcium 40 MG TAB PO SCH (19:57)
[2019-12-11] MEDS: Amlodipine 10 MG TAB PO SCH (08:10)
[2019-12-11] MEDS: Atenolol 50 MG TAB PO SCH (08:10)
[2019-12-11] MEDS: hydrALAZINE 25 MG TAB PO SCH ×2 (08:11→20:27)
[2019-12-11] MEDS: Multivitamin W/ Minerals 1 TAB PO SCH (08:11)
--- NOTE | 2019-12-11 10:43 | PDOC.HOSPP ---
- Subjective Encounter Date: 12/11/19 Encounter Time: 08:30 Subjective: Patient seen and examined. No new complaints. No overnight events - Objective Vital Signs & Weight: Vital Signs (12 hours) Temp Pulse Resp BP BP Pulse Ox 12/11/19 08:11 78 159/69 H 12/11/19 08:10 99.1 F 78 14 159/69 H 159/69 H 99 12/11/19 00:00 99.1 F 75 22 H 150/64 H 99 Weight Admit Weight 141 lb 3 oz Weight 141 lb 3 oz I&O: 12/10/19 12/11/19 12/12/19 06:59 06:59 06:59 Intake Total 480 Balance 480 Result Diagrams: 12/10/19 05:16 12/10/19 05:16 Hospitalist ROS - Review of Systems ENT: denies: ear pain, ear discharge, nose pain, nose discharge, nose congestion, mouth pain, mouth swelling, throat pain, throat swelling, other Respiratory: denies: cough, dry, shortness of breath, hemoptysis, SOB with excertion, pleuritic pain, sputum, wheezing, other Cardiovascular: denies: chest pain, palpitations, orthopnea, paroxysmal noc. dyspnea, edema, light headedness, other Gastrointestinal: denies: nausea, vomiting, abdominal pain, diarrhea, constipation, melena, hematochezia, other Genitourinary: denies: dysuria, frequency, incontinence, hematuria, retention, other Musculoskeletal: denies: neck pain, shoulder pain, arm pain, back pain, hand pain, leg pain, foot pain, other - Medication Medications: Active Medications Generic Name Dose Route Start Last Admin Trade Name Wildq PRN Reason Stop Dose Admin Acetaminophen 650 mg 12/06/19 20:10 12/09/19 20:31 Acetaminophen 325 Mg Tab PO 650 mg Q4H PRN Administration Headache/Fever/Mild Pain (1-3) Amlodipine Besylate 10 mg 12/10/19 09:00 12/11/19 08:10 Amlodipine 10 Mg Tab PO 10 mg DAILY PIERCE Administration Atenolol 50 mg 12/10/19 09:00 12/11/19 08:10 Atenolol 50 Mg Tab PO 50 mg DAILY PIERCE Administration Atorvastatin Calcium 40 mg 12/10/19 21:00 12/10/19 19:57 Atorvastatin Calcium 40 Mg Tab PO 40 mg HS PIERCE Administration Hydralazine HCl 50 mg 12/09/19 21:00 12/11/19 08:11 Hydralazine 25 Mg Tab PO 50 mg BID PIERCE Administration Iron/Minerals/Multivitamins 1 tab 12/10/19 09:00 12/11/19 08:11 Multivitamin W/ Minerals 1 Tab PO 1 tab DAILY PIERCE Administration Levofloxacin 500 mg 12/09/19 06:00 12/11/19 05:53 Levofloxacin 500 Mg Tab PO 500 mg 0600 PIERCE Administration Pantoprazole Sodium 40 mg 12/09/19 09:00 12/11/19 08:11 Pantoprazole 40 Mg Tab PO 40 mg DAILY PIERCE Administration Sodium Chloride 10 ml 12/08/19 21:00 12/11/19 08:11 Flush - Normal Saline 10 Ml Syringe IVF 10 ml Q12HR PIERCE Administration Sodium Chloride 10 ml 12/08/19 13:00 12/08/19 21:54 Flush - Normal Saline 10 Ml Syringe IVF 10 ml PRN PRN Administration Saline Flush - Exam General Appearance: NAD, awake alert Eye: PERRL, anicteric sclera ENT: normocephalic atraumatic, no oropharyngeal lesions Neck: supple, symmetric, no JVD, no thyromegaly Heart: RRR, no murmur, no gallops, no rubs Respiratory: CTAB, no wheezes, no rales, no ronchi Gastrointestinal: soft, non-tender, non-distended, normal bowel sounds Extremities: no cyanosis, no clubbing, no edema Skin: normal turgor, no lesions Neurological: no focal deficits Musculoskeletal: normal tone, normal strength Psychiatric: normal affect, normal behavior Hosp A/P (1) Fever Code(s): R50.9 - FEVER, UNSPECIFIED Status: Resolved Qualifiers: Fever type: unspecified Qualified Code(s): R50.9 - Fever, unspecified (2) Anemia Code(s): D64.9 - ANEMIA, UNSPECIFIED Status: Chronic Qualifiers: Anemia type: unspecified type Qualified Code(s): D64.9 - Anemia, unspecified (3) FTT (failure to thrive) in adult Status: Chronic (4) HTN (hypertension) Code(s): I10 - ESSENTIAL (PRIMARY) HYPERTENSION Status: Chronic Qualifiers: Hypertension type: essential hypertension Qualified Code(s): I10 - Essential (primary) hypertension (5) Moderate protein malnutrition Code(s): E44.0 - MODERATE PROTEIN-CALORIE MALNUTRITION Status: Chronic (6) TALON (acute kidney injury) Code(s): N17.9 - ACUTE KIDNEY FAILURE, UNSPECIFIED Status: Resolved (7) Moderate dehydration Code(s): E86.0 - DEHYDRATION Status: Resolved - Plan old records reviewed/req, plan discussed w/ family, PT/OT, community mental health social worker I have updated patient's son about plan of care Patient's son prefer penitentiary home placement Patient is medically stable On penitentiary home arrangement completed then will consider discharge Paperwork for discharge in the chart
[2019-12-11] MEDS: Atorvastatin Calcium 40 MG TAB PO SCH (20:27)
[2019-12-12] MEDS: Amlodipine 10 MG TAB PO SCH (08:39)
[2019-12-12] MEDS: hydrALAZINE 25 MG TAB PO SCH ×2 (08:41→21:07)
[2019-12-12] MEDS: Atenolol 50 MG TAB PO SCH (08:41)
[2019-12-12] MEDS: Multivitamin W/ Minerals 1 TAB PO SCH (08:41)
[2019-12-12] MEDS: Acetaminophen 325 MG TAB PO PRN ×2 (08:44→21:09)
--- NOTE | 2019-12-12 14:44 | CON ---
DATE OF CONSULTATION: 12/11/2019 REASON FOR CONSULTATION: Persistence of fever. HISTORY OF PRESENT ILLNESS: An 84-year-old, history of hyperparathyroidism, hyperlipidemia, hypertension, who developed recurrent episodes of fever, also developed pain in the knees and ankles and inability to ambulate because of this pain for the past 2 weeks. He used to be able to take care of all his activities of daily living until this developed. So, he was brought in. Initial findings, BP 150/124, pulse 90, temperature nl O2 saturation 99 on room air. The exam showed a faint holosystolic murmur. Remainder aspects of the exam in the emergency room were not described as particularly remarkable. The patient has had temperature elevation of 100.8 on admission and now he just had 101 x2. He otherwise appears to be okay. He denies any headaches, visual symptoms, sore throat, odynophagia, or dysphagia. No cough, sputum production, or chest pain. No abdominal pain. No back pain. No diarrhea. No genitourinary symptoms. He has marked pain on range of motion of the right knee, not so much on the left, and range of motion of the ankle right and left side elicits pain, the first MPJ on right and left side elicits pain as well. PAST MEDICAL HISTORY: Hyperparathyroidism, hypertension, hyperlipidemia. SURGICAL HISTORY: Hand operation. SOCIAL HISTORY: Lives by himself in [place]. Former smoker. ALLERGIES: PENICILLIN. CURRENT MEDICATIONS: Include; 1. Lipitor. 2. Tums. 3. Apresoline. 4. [place]. 5. Motrin. FAMILY HISTORY: Noncontributory. PHYSICAL EXAMINATION: VITAL SIGNS: T-max 101 x2 just recently. BP 115/52, heart rate 69, respiratory rate 18, O2 saturation 98 on room air. GENERAL: Appears in no distress except when I try to move his legs. No edema. HEENT: Ocular movements conjugate. Oral cavity with no remarkable findings. NECK: Supple, no jugular vein distention. LUNGS: Symmetric, clear breath sounds. HEART: S1 and S2, regular rate. No S3 or S4. ABDOMEN: Soft. Not distended or tender. No ascites. No bladder distention. : No genital abnormalities. EXTREMITIES: He keeps his right lower extremity flexed. There is deformity of the knee and there might be some effusion there. It is quite painful to try to extend or flex his right knee. The left side is little better than that, though the ankles are painful too and the 1st metacarpophalangeal joints are painful too. NEUROLOGIC: He is oriented. He follows commands. Recollection is pretty decent. LABORATORY DATA: White cell count is 10.6, went up to 14, now is down to 9.7 with 81% neutrophils. Sodium 138, creatinine 1.1. Ferritin calcium was 8. I do not have a uric acid here yet. We have CT abdomen and pelvis and chest, which was not particularly remarkable. Minimal bilateral pleural effusions. Small pericardial effusion. A 5 mm right upper lobe pleural-based pulmonary nodule, compression of L2 vertebral body. He has knee x-rays bilateral with arthritic change of the knee and chondrocalcinosis. ASSESSMENT: Hyperparathyroidism history, hypertension, chondrocalcinosis of knee, new onset of marked functional impairment due to knee inflammatory changes and ankle as well, low-grade fever. DISCUSSION: Differential diagnosis includes gout versus pseudogout. Infectious arthropathy is less likely. Autoimmune process including rheumatoid arthritis is less likely, but not ruled out. We will check his uric acid. He may have pseudogout. May need an aspirate of one of the knees or ankle. We will start him on colchicine. Check uric acid level. Job ID: [id number] [facility]
--- NOTE | 2019-12-12 15:16 | PDOC.HOSPP ---
- Subjective Encounter Date: 12/12/19 Subjective: Fever was reported overnight. The patient is complaining of bilateral knee pain. - Objective Vital Signs & Weight: Vital Signs (12 hours) Temp Pulse Resp BP BP Pulse Ox 12/12/19 12:30 99.3 F 69 18 115/52 L 115/52 L 98 12/12/19 08:44 101 F H 75 18 149/55 H 12/12/19 08:41 75 149/55 H 12/12/19 08:39 75 149/55 H 12/12/19 07:44 101.0 F H 75 18 149/55 H 90 L Weight Admit Weight 141 lb 3 oz Weight 141 lb 3 oz I&O: 12/11/19 12/12/19 12/13/19 06:59 06:59 06:59 Intake Total 480 Balance 480 Result Diagrams: 12/10/19 05:16 12/10/19 05:16 Hospitalist ROS - Medication Medications: Active Medications Generic Name Dose Route Start Last Admin Trade Name Freq PRN Reason Stop Dose Admin Acetaminophen 650 mg 12/06/19 20:10 12/12/19 08:44 Acetaminophen 325 Mg Tab PO 650 mg Q4H PRN Administration Headache/Fever/Mild Pain (1-3) Amlodipine Besylate 10 mg 12/10/19 09:00 12/12/19 08:39 Amlodipine 10 Mg Tab PO 10 mg DAILY PIERCE Administration Atenolol 50 mg 12/10/19 09:00 12/12/19 08:41 Atenolol 50 Mg Tab PO 50 mg DAILY PIERCE Administration Atorvastatin Calcium 40 mg 12/10/19 21:00 12/11/19 20:27 Atorvastatin Calcium 40 Mg Tab PO 40 mg HS PIERCE Administration Hydralazine HCl 50 mg 12/09/19 21:00 12/12/19 08:41 Hydralazine 25 Mg Tab PO 50 mg BID PIERCE Administration Iron/Minerals/Multivitamins 1 tab 12/10/19 09:00 12/12/19 08:41 Multivitamin W/ Minerals 1 Tab PO 1 tab DAILY PIERCE Administration Pantoprazole Sodium 40 mg 12/09/19 09:00 12/12/19 08:41 Pantoprazole 40 Mg Tab PO 40 mg DAILY PIERCE Administration Sodium Chloride 10 ml 12/08/19 21:00 12/12/19 08:42 Flush - Normal Saline 10 Ml Syringe IVF 10 ml Q12HR PIERCE Administration Sodium Chloride 10 ml 12/08/19 13:00 12/08/19 21:54 Flush - Normal Saline 10 Ml Syringe IVF 10 ml PRN PRN Administration Saline Flush - Exam General Appearance: awake alert Neck: supple, no JVD Heart: RRR Respiratory: normal chest expansion, no tachypnea Extremities - other findings: Bilateral knee swelling more to the right than the left. + Tenderness Neurological: cranial nerve grossly intact, no focal deficits Hosp A/P - Plan Hosp A/P (1) Fever Code(s): R50.9 - FEVER, UNSPECIFIED Status: Resolved Qualifiers: Fever type: unspecified Qualified Code(s): R50.9 - Fever, unspecified (2) Anemia Code(s): D64.9 - ANEMIA, UNSPECIFIED Status: Chronic Qualifiers: Anemia type: unspecified type Qualified Code(s): D64.9 - Anemia, unspecified (3) FTT (failure to thrive) in adult Status: Chronic (4) HTN (hypertension) Code(s): I10 - ESSENTIAL (PRIMARY) HYPERTENSION Status: Chronic Qualifiers: Hypertension type: essential hypertension Qualified Code(s): I10 - Essential (primary) hypertension (5) Moderate protein malnutrition Code(s): E44.0 - MODERATE PROTEIN-CALORIE MALNUTRITION Status: Chronic (6) TALON (acute kidney injury) Code(s): N17.9 - ACUTE KIDNEY FAILURE, UNSPECIFIED Status: Resolved (7) Moderate dehydration Code(s): E86.0 - DEHYDRATION Status: Resolved - Plan The patient presented with fever of unknown origin. He was managed with antibiotics empirically which led to resolution of the fever initially but it seems like his fever has recurred. He is complaining of bilateral knee pain and his knees are swollen and tender. There is no erythema or warmth. ID were consulted and they recommended management for gout or pseudogout and mon itor the patient's response. Colchicine was initiated.
[2019-12-12] MEDS: Colchicine 0.6 MG TAB PO SCH (21:07)
[2019-12-12] MEDS: Atorvastatin Calcium 40 MG TAB PO SCH (21:07)
[2019-12-13 07:55] LABS: Anion Gap 13 mmol/L (10-20); BUN (Urea Nitrogen) 43 mg/dL (8.4-25.7); Calc. Creatinine Clearance 33 mL/min (70-130); Calcium 8.3 mg/dL (7.8-10.44); Carbon Dioxide 26 mmol/L (23-31); Chloride 107 mmol/L (98-107); Estimated GFR-MDRD 43; Glucose 148 mg/dL (83-110); Potassium 3.7 mmol/L (3.5-5.1); Sodium 142 mmol/L (136-145)
[2019-12-13] MEDS: hydrALAZINE 25 MG TAB PO SCH ×2 (07:59→20:29)
[2019-12-13] MEDS: Amlodipine 10 MG TAB PO SCH (07:59)
[2019-12-13] MEDS: Colchicine 0.6 MG TAB PO SCH (07:59)
[2019-12-13] MEDS: Multivitamin W/ Minerals 1 TAB PO SCH (08:00)
[2019-12-13] MEDS: Atenolol 50 MG TAB PO SCH (08:00)
--- NOTE | 2019-12-13 12:45 | PDOC.HOSPP ---
- Subjective Encounter Date: 12/13/19 Subjective: Complains of bilateral knee pain. - Objective Vital Signs & Weight: Vital Signs (12 hours) Temp Pulse Resp BP BP Pulse Ox 12/13/19 11:59 99.4 F 12/13/19 11:25 100.2 F H 71 16 158/63 H 94 L 12/13/19 08:00 77 139/56 L 93 L 12/13/19 07:59 77 139/56 L 12/13/19 07:14 99.9 F H 77 18 139/56 L 93 L 12/13/19 05:16 99.4 F 75 18 146/64 H 93 L 12/13/19 03:10 98.2 F Weight Admit Weight 141 lb 3 oz Weight 141 lb 3 oz I&O: 12/12/19 12/13/19 12/14/19 06:59 06:59 06:59 Intake Total 580 660 Balance 580 660 Result Diagrams: 12/10/19 05:16 12/13/19 07:11 Hospitalist ROS - Medication Medications: Active Medications Generic Name Dose Route Start Last Admin Trade Name Freq PRN Reason Stop Dose Admin Acetaminophen 650 mg 12/06/19 20:10 12/12/19 21:09 Acetaminophen 325 Mg Tab PO 650 mg Q4H PRN Administration Headache/Fever/Mild Pain (1-3) Amlodipine Besylate 10 mg 12/10/19 09:00 12/13/19 07:59 Amlodipine 10 Mg Tab PO 10 mg DAILY PIERCE Administration Atenolol 50 mg 12/10/19 09:00 12/13/19 08:00 Atenolol 50 Mg Tab PO 50 mg DAILY PIERCE Administration Atorvastatin Calcium 40 mg 12/10/19 21:00 12/12/19 21:07 Atorvastatin Calcium 40 Mg Tab PO 40 mg HS PIERCE Administration Hydralazine HCl 50 mg 12/09/19 21:00 12/13/19 07:59 Hydralazine 25 Mg Tab PO 50 mg BID PIERCE Administration Iron/Minerals/Multivitamins 1 tab 12/10/19 09:00 12/13/19 08:00 Multivitamin W/ Minerals 1 Tab PO 1 tab DAILY PIERCE Administration Pantoprazole Sodium 40 mg 12/09/19 09:00 12/13/19 08:00 Pantoprazole 40 Mg Tab PO 40 mg DAILY PIERCE Administration Sodium Chloride 10 ml 12/08/19 21:00 10/29/20 08:00 Flush - Normal Saline 10 Ml Syringe IVF 10 ml Q12HR PIERCE Administration Sodium Chloride 10 ml 12/08/19 13:00 12/08/19 21:54 Flush - Normal Saline 10 Ml Syringe IVF 10 ml PRN PRN Administration Saline Flush - Exam General Appearance: awake alert ENT: normocephalic atraumatic Neck: supple, no JVD Respiratory: normal chest expansion, no tachypnea Gastrointestinal: soft Extremities: no cyanosis, no clubbing Extremities - other findings: Bilateral knee swelling Neurological: no focal deficits Hosp A/P - Plan Hosp A/P (1) Fever Code(s): R50.9 - FEVER, UNSPECIFIED Status: Resolved Qualifiers: Fever type: unspecified Qualified Code(s): R50.9 - Fever, unspecified (2) Anemia Code(s): D64.9 - ANEMIA, UNSPECIFIED Status: Chronic Qualifiers: Anemia type: unspecified type Qualified Code(s): D64.9 - Anemia, unspecified (3) FTT (failure to thrive) in adult Status: Chronic (4) HTN (hypertension) Code(s): I10 - ESSENTIAL (PRIMARY) HYPERTENSION Status: Chronic Qualifiers: Hypertension type: essential hypertension Qualified Code(s): I10 - Essential (primary) hypertension (5) Moderate protein malnutrition Code(s): E44.0 - MODERATE PROTEIN-CALORIE MALNUTRITION Status: Chronic (6) TALON (acute kidney injury) Code(s): N17.9 - ACUTE KIDNEY FAILURE, UNSPECIFIED Status: Resolved (7) Moderate dehydration Code(s): E86.0 - DEHYDRATION Status: Resolved - Plan The patient presented with fever of unknown origin. He was managed with antibiotics empirically which led to resolution of the fever initially but it seems like his fever has recurred. He is complaining of bilateral knee pain and his knees are swollen and tender. There is no erythema or warmth. ID were consulted and they recommended management for gout or pseudogout and monitor the patient's response. Ibuprofen and colchicine were initiated, however, the patient's creatinine level has worsened since then. I have discontinued those 2 medications and started the patient on oral prednisone and IV fluids. Recheck BMP in the morning.
[2019-12-13] MEDS: Sodium Chloride 0.9% 1,000 ML IV SCH ×2 (13:29→20:29)
--- NOTE | 2019-12-13 16:42 | PRG ---
DATE OF SERVICE: 12/13/2019 SUBJECTIVE: The patient feels about the same as yesterday. OBJECTIVE: VITAL SIGNS: T-max was 100.2, BP 130/50, heart rate 67. MUSCULOSKELETAL: The joints are about the same, they are calcine furnace tender to palpation, particularly the knees and ankles. LUNGS: Clear. HEART: S1 and S2, regular rate. No S3 or S4. ABDOMEN: Soft. Not distended. LABORATORY DATA: Sodium 142, creatinine 1.55. White cell count is 9.7, hemoglobin 8.9. The uric acid was elevated at 8.9. ASSESSMENT AND DISCUSSION: Hyperparathyroidism history, hypertension, chondrocalcinosis of knee, new onset of functional impairment due to knee inflammatory changes and ankle as well, low-grade fever. Again, the patient has hyperuricemia, so gout is the more likely scenario. Pseudogout is a possibility as well. He may benefit from a corticosteroid injection in the joints. Continue colchicine. Job ID: [id number]
[2019-12-13] MEDS: Atorvastatin Calcium 40 MG TAB PO SCH (20:29)
[2019-12-13] MEDS: HYDROcodone/Acetaminophen 5/325 mg Tablet PO PRN (20:41)
[2019-12-14] MEDS: Amlodipine 10 MG TAB PO SCH (08:51)
[2019-12-14] MEDS: Multivitamin W/ Minerals 1 TAB PO SCH (08:52)
[2019-12-14] MEDS: Atenolol 50 MG TAB PO SCH (08:52)
[2019-12-14] MEDS: hydrALAZINE 25 MG TAB PO SCH ×2 (08:52→20:28)
[2019-12-14 12:04] LABS: Anion Gap 13 mmol/L (10-20); BUN (Urea Nitrogen) 48 mg/dL (8.4-25.7); Calc. Creatinine Clearance 34 mL/min (70-130); Calcium 7.8 mg/dL (7.8-10.44); Carbon Dioxide 24 mmol/L (23-31); Chloride 107 mmol/L (98-107); Estimated GFR-MDRD 45; Glucose 230 mg/dL (83-110); Potassium 3.5 mmol/L (3.5-5.1); Sodium 140 mmol/L (136-145)
--- NOTE | 2019-12-14 13:26 | PDOC.HOSPP ---
- Subjective Encounter Date: 12/14/19 Encounter Time: 11:00 Subjective: Patient feels better today; cr slightly better-- has to ambulate. crystal arthropathy rule out. - Objective Vital Signs & Weight: Vital Signs (12 hours) Temp Pulse Resp BP BP Pulse Ox 12/14/19 11:11 98.2 F 71 20 124/61 100 12/14/19 08:52 70 129/60 12/14/19 08:51 70 129/60 12/14/19 08:00 98 12/14/19 07:37 97.7 F 70 18 120/62 98 Weight Admit Weight 141 lb 3 oz Weight 141 lb 3 oz I&O: 12/13/19 12/14/19 12/15/19 06:59 06:59 06:59 Intake Total 660 1940 Balance 660 1940 Result Diagrams: 12/10/19 05:16 12/14/19 11:09 Hospitalist ROS - Medication Medications: Active Medications Generic Name Dose Route Start Last Admin Trade Name Freq PRN Reason Stop Dose Admin Acetaminophen 650 mg 12/06/19 20:10 12/12/19 21:09 Acetaminophen 325 Mg Tab PO 650 mg Q4H PRN Administration Headache/Fever/Mild Pain (1-3) Hydrocodone Bitart/Acetaminophen 1 tab 12/10/19 07:49 12/13/19 20:41 Hydrocodone/Acetaminophen 5/325 Mg Tablet PO 1 tab Q4H PRN Administration Moderate Pain (4-6) Amlodipine Besylate 10 mg 12/10/19 09:00 12/14/19 08:51 Amlodipine 10 Mg Tab PO 10 mg DAILY PIERCE Administration Atenolol 50 mg 12/10/19 09:00 12/14/19 08:52 Atenolol 50 Mg Tab PO 50 mg DAILY PIERCE Administration Atorvastatin Calcium 40 mg 12/10/19 21:00 12/13/19 20:29 Atorvastatin Calcium 40 Mg Tab PO 40 mg HS PIERCE Administration Hydralazine HCl 50 mg 12/09/19 21:00 12/14/19 08:52 Hydralazine 25 Mg Tab PO 50 mg BID PIERCE Administration Sodium Chloride 1,000 mls @ 75 mls/hr 12/13/19 12:45 12/13/19 20:29 Normal Saline 0.9% IV 1,000 mls .[id number] PIERCE Administration Iron/Minerals/Multivitamins 1 tab 12/10/19 09:00 12/14/19 08:52 Multivitamin W/ Minerals 1 Tab PO 1 tab DAILY PIERCE Administration Pantoprazole Sodium 40 mg 12/09/19 09:00 12/14/19 08:51 Pantoprazole 40 Mg Tab PO 40 mg DAILY PIERCE Administration Sodium Chloride 10 ml 12/08/19 21:00 12/14/19 08:52 Flush - Normal Saline 10 Ml Syringe IVF 10 ml Q12HR PIERCE Administration Sodium Chloride 10 ml 12/08/19 13:00 12/08/19 21:54 Flush - Normal Saline 10 Ml Syringe IVF 10 ml PRN PRN Administration Saline Flush - Exam General Appearance: NAD, awake alert Eye: PERRL ENT: normocephalic atraumatic Neck: supple Heart: RRR Respiratory: CTAB Gastrointestinal: soft, normal bowel sounds Hosp A/P - Plan (1) Fever Code(s): R50.9 - FEVER, UNSPECIFIED Status: Resolved Qualifiers: Fever type: unspecified Qualified Code(s): R50.9 - Fever, unspecified (2) Anemia Code(s): D64.9 - ANEMIA, UNSPECIFIED Status: Chronic Qualifiers: Anemia type: unspecified type Qualified Code(s): D64.9 - Anemia, unspecified (3) FTT (failure to thrive) in adult Status: Chronic (4) HTN (hypertension) Code(s): I10 - ESSENTIAL (PRIMARY) HYPERTENSION Status: Chronic Qualifiers: Hypertension type: essential hypertension Qualified Code(s): I10 - Essential (primary) hypertension (5) Moderate protein malnutrition Code(s): E44.0 - MODERATE PROTEIN-CALORIE MALNUTRITION Status: Chronic (6) TALON (acute kidney injury) Code(s): N17.9 - ACUTE KIDNEY FAILURE, UNSPECIFIED Status: Resolved (7) Moderate dehydration Code(s): E86.0 - DEHYDRATION Status: Resolved - Plan The patient presented with fever of unknown origin. He was managed with antibiotics empirically which led to resolution of the fever initially but it seems like his fever has recurred. -bilateral knee pain and his knees are swollen and tender. There is no erythema or warmth. ID were consulted and they recommended management for gout or pseudogout and monitor the patient's response. Ibuprofen and colchicine were initiated, however, the patient's creatinine level has worsened since then. --On IV steroid and colchicine---------------> creatinine on Tuesday 1.48 -ambulates -Uric acid level at 8.9 in the context of elevated creatinine around 1.48. Uric acid level not significant enough to consider this is oliva gout flareup. However we cannot confirm that unless we have aspiration of the serous fluid of the knee and to check for crystals. Covid negative
[2019-12-14] MEDS: Sodium Chloride 0.9% 1,000 ML IV SCH (16:26)
[2019-12-14] MEDS: Atorvastatin Calcium 40 MG TAB PO SCH (20:28)
[2019-12-15] MEDS: Sodium Chloride 0.9% 1,000 ML IV SCH ×2 (04:12→16:18)
[2019-12-15] MEDS: Multivitamin W/ Minerals 1 TAB PO SCH (09:50)
[2019-12-15] MEDS: Amlodipine 10 MG TAB PO SCH (09:50)
[2019-12-15] MEDS: hydrALAZINE 25 MG TAB PO SCH ×2 (09:50→20:13)
[2019-12-15] MEDS: Atenolol 50 MG TAB PO SCH (09:51)
--- NOTE | 2019-12-15 12:21 | PDOC.HOSPP ---
- Subjective Encounter Date: 12/15/19 Encounter Time: 09:10 Subjective: Patient has both swelling on his leg and knees. Left right greater than the left. And it is warm to the touch. Planing of knee pain both sides limiting his minimal ambulation. Palpation did not reveal any loculated effusion. I talked to the orthopedic rhinestone setter who would likely see him to check whether swelling/fluid aspirated to check further fluid studies, Including crystals. Had a knee x-ray done at 24 2 that showed a lot of arthritic changes without any acute injury. No joint effusion noted at that time. - Objective Vital Signs & Weight: Vital Signs (12 hours) Temp Pulse Resp BP BP Pulse Ox 12/15/19 12:00 98.2 F 66 20 123/65 99 12/15/19 09:51 68 138/55 L 12/15/19 09:50 68 138/55 L 12/15/19 07:43 98.3 F 68 20 138/55 L 99 12/15/19 04:00 97.5 F L 68 18 136/55 L 99 Weight Admit Weight 141 lb 3 oz Weight 141 lb 3 oz I&O: 12/14/19 12/15/19 12/16/19 06:59 06:59 05:59 Intake Total 1939 2009 Balance 1939 2009 Result Diagrams: 12/10/19 05:16 12/14/19 11:09 Hospitalist ROS - Medication Medications: Active Medications Generic Name Dose Route Start Last Admin Trade Name Freq PRN Reason Stop Dose Admin Acetaminophen 650 mg 12/06/19 20:10 12/12/19 21:09 Acetaminophen 325 Mg Tab PO 650 mg Q4H PRN Administration Headache/Fever/Mild Pain (1-3) Hydrocodone Bitart/Acetaminophen 1 tab 12/10/19 07:49 12/13/19 20:41 Hydrocodone/Acetaminophen 5/325 Mg Tablet PO 1 tab Q4H PRN Administration Moderate Pain (4-6) Amlodipine Besylate 10 mg 12/10/19 09:00 12/15/19 09:50 Amlodipine 10 Mg Tab PO 10 mg DAILY PIERCE Administration Atenolol 50 mg 12/10/19 09:00 12/15/19 09:51 Atenolol 50 Mg Tab PO 50 mg DAILY PIERCE Administration Atorvastatin Calcium 40 mg 12/10/19 21:00 10/30/20 20:28 Atorvastatin Calcium 40 Mg Tab PO 40 mg HS PIERCE Administration Hydralazine HCl 50 mg 12/09/19 21:00 12/15/19 09:50 Hydralazine 25 Mg Tab PO 50 mg BID PIERCE Administration Sodium Chloride 1,000 mls @ 75 mls/hr 12/13/19 12:45 12/15/19 04:12 Normal Saline 0.9% IV 1,000 mls .[id number] PIERCE Administration Iron/Minerals/Multivitamins 1 tab 12/10/19 09:00 12/15/19 09:50 Multivitamin W/ Minerals 1 Tab PO 1 tab DAILY PIERCE Administration Pantoprazole Sodium 40 mg 12/09/19 09:00 12/15/19 09:50 Pantoprazole 40 Mg Tab PO 40 mg DAILY PIERCE Administration Sodium Chloride 10 ml 12/08/19 21:00 12/15/19 09:52 Flush - Normal Saline 10 Ml Syringe IVF 10 ml Q12HR PIERCE Administration Sodium Chloride 10 ml 12/08/19 13:00 12/08/19 21:54 Flush - Normal Saline 10 Ml Syringe IVF 10 ml PRN PRN Administration Saline Flush - Exam General Appearance: NAD, awake alert Eye: PERRL ENT: normocephalic atraumatic Neck: supple Heart: RRR Respiratory: CTAB Gastrointestinal: soft, normal bowel sounds Extremities - other findings: Right knee is swollen more so than on the left. Both are warm to touch. B Skin - other findings: No skin changes noted over the knees. Neurological: no weakness, no focal deficits Hosp A/P - Plan (1) Fever Code(s): R50.9 - FEVER, UNSPECIFIED Status: Resolved Qualifiers: Fever type: unspecified Qualified Code(s): R50.9 - Fever, unspecified (2) Anemia Code(s): D64.9 - ANEMIA, UNSPECIFIED Status: Chronic Qualifiers: Anemia type: unspecified type Qualified Code(s): D64.9 - Anemia, unspecified (3) FTT (failure to thrive) in adult Status: Chronic (4) HTN (hypertension) Code(s): I10 - ESSENTIAL (PRIMARY) HYPERTENSION Status: Chronic Qualifiers: Hypertension type: essential hypertension Qualified Code(s): I10 - Essential (primary) hypertension (5) Moderate protein malnutrition Code(s): E44.0 - MODERATE PROTEIN-CALORIE MALNUTRITION Status: Chronic (6) TALON (acute kidney injury) Code(s): N17.9 - ACUTE KIDNEY FAILURE, UNSPECIFIED Status: Resolved (7) Moderate dehydration Code(s): E86.0 - DEHYDRATION Status: Resolved - Plan The patient presented with fever of unknown origin. He was managed with antibiotics empirically which led to resolution of the fever initially but it seems like his fever has recurred. -bilateral knee pain and his knees are swollen and tender. There is no erythema or warmth. ID were consulted and they recommended management for gout or pseudogout and monitor the patient's response. Ibuprofen and colchicine were initiated, however, the patient's creatinine level has worsened since then. --On IV steroid and colchicine---------------> creatinine on Tuesday 1.48 -ambulates -Uric acid level at 8.9 in the context of elevated creatinine around 1.48. Uric acid level not significant enough to consider this is oliva gout flareup. However we cannot confirm that unless we have aspiration of the serous fluid of the knee and to check for crystals. 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 - Palpation did not reveal any loculated effusion. I talked to the orthopedic rhinestone setter who would likely see him to check whether swelling/fluid aspirated to check further fluid studies, Including crystals. - Had a knee x-ray done at 24 2 that showed a lot of arthritic changes without any acute injury. No joint effusion noted at that time. -We may have to discontinue the prednisone if low threshold for any crystal induced arthropathy with pre-existing osteoarthritic changes. Right upper lobe pleural-based pulmonary nodule of 5 mm --Since the nodule is less than 8 mm this can be followed in the outpatient setting every [address] chest. L2 vertebral body indeterminate age compression Physical therapy on board. Disposition--patient lives alone for the most part. He has a son lives nearby.
--- NOTE | 2019-12-15 16:28 | PRG ---
DATE OF SERVICE: 12/15/2019 SUBJECTIVE: Mr. Henderson is an 84-year-old gentleman, who is examined again today for evaluation of bilateral knee pain. The patient was last seen by my service on December 08. At which time, he had complaints of bilateral knee pain with x-rays demonstrating significant osteoarthritis of both knees. The patient is still complaining of knee pain and as such, re-evaluation from orthopedics was requested. Today, when I spoke with the patient, he reports that he does not have pain at rest. When he attempts to get up, he does have pain, however, he states that this is not at all different from the pain which he experienced over at least the last month if not longer. He reports that he has had a significant history of bilateral knee pain. Today, I also reviewed the x-ray findings from x-rays that were obtained of both knees on the 07 of December. OBJECTIVE: VITAL SIGNS: Temperature of 98.2, heart rate of 66, respiratory rate of 20, and blood pressure of 123/65. MUSCULOSKELETAL: The right knee is remarkable for significant patellofemoral malalignment with lateral tracking patella. He is found to have a mild effusion within this knee. He does have a flexion contracture consistent with his osteoarthritis. He is able to flex to approximately 90 degrees over this limited range of motion, there is not an extreme amount of pain. He does have pain with patellofemoral grind testing. There is no redness. There is no evidence for a gouty knee and certainly no evidence for a septic knee. The left knee is remarkable for a more normally aligned patella femoral joint with just a trace effusion. He does have joint line pain to palpation. He has a less dramatic flexion contracture of only 5 degrees or so with flexion also to about 90 degrees with range of motion. There is crepitation, but no dramatic increase in pain. Again, there is no redness. There is no significant increased warmth of the knee and no evidence for a gouty knee or septic arthritis. IMAGING STUDIES: X-rays review of plain films from December 08 of both knees show tricompartmental osteoarthritis of both knees with significant patellofemoral arthrosis, right greater than left. LABORATORY DATA: Most recent lab was from December 09, at which time, he had a white count of 9.7 with hematocrit of 26.7, and 205,000 platelets. ASSESSMENT: An 84-year-old gentleman with known preexisting osteoarthritis of both knees. On close review of his x-rays, there is evidence of calcifications of the meniscus. This certainly could be pseudogout superimposed on the osteoarthritis. At this time, I do not see any benefit for an aspiration of either knee given the fact that he clearly does not have symptoms consistent with a septic joint and even does not have symptoms consistent with significant gouty arthritis. He certainly does have osteoarthritis and I believe probably has some underlying superimposed pseudogout present as well, however, treatment for these two would not be dissimilar. At this time, we would recommend anti-inflammatories as needed to assist with pain management. Upon discharge from the hospital, we would recommend follow up with the Orthopedic associates if he desires further followup and at that time, they could discuss perhaps steroid injections versus even going over the pros and cons of joint replacement surgery, although certainly the patient has other nonsurgical management options available to him before consideration of knee replacement would be warranted. Job ID: [id number]
[2019-12-15] MEDS: Atorvastatin Calcium 40 MG TAB PO SCH (20:13)
[2019-12-16] MEDS: Sodium Chloride 0.9% 1,000 ML IV SCH ×3 (04:00→16:00)
[2019-12-16] MEDS: Atenolol 50 MG TAB PO SCH (08:13)
[2019-12-16] MEDS: hydrALAZINE 25 MG TAB PO SCH ×2 (08:14→19:36)
[2019-12-16] MEDS: Multivitamin W/ Minerals 1 TAB PO SCH (08:14)
[2019-12-16] MEDS: Amlodipine 10 MG TAB PO SCH (08:14)
[2019-12-16] MEDS: HYDROcodone/Acetaminophen 5/325 mg Tablet PO PRN (11:29)
--- NOTE | 2019-12-16 13:50 | PDOC.HOSPP ---
- Subjective Encounter Date: 12/16/19 Encounter Time: 09:45 Subjective: Patient seen this morning. He still quite debilitated with his knee pain. Not able to ambulate with ease. Orthopedic note reviewed. Bilateral knees examined today as well. No worsening of the swelling. - Objective Vital Signs & Weight: Vital Signs (12 hours) Temp Pulse Resp BP BP BP Pulse Ox 12/16/19 11:41 98.3 F 67 18 161/61 H 95 12/16/19 08:14 66 153/58 H 12/16/19 08:13 66 153/58 H 12/16/19 08:00 98.7 F 92 18 152/62 H 96 12/16/19 04:02 98.1 F 66 153/58 H 98 Weight Admit Weight 141 lb 3 oz Weight 141 lb 3 oz I&O: 12/15/19 12/16/19 12/17/19 07:59 06:59 06:59 Intake Total Balance Result Diagrams: 12/10/19 05:16 12/14/19 11:09 Hospitalist ROS - Medication Medications: Active Medications Generic Name Dose Route Start Last Admin Trade Name Freq PRN Reason Stop Dose Admin Acetaminophen 650 mg 12/06/19 20:10 12/12/19 21:09 Acetaminophen 325 Mg Tab PO 650 mg Q4H PRN Administration Headache/Fever/Mild Pain (1-3) Hydrocodone Bitart/Acetaminophen 1 tab 12/10/19 07:49 12/16/19 11:29 Hydrocodone/Acetaminophen 5/325 Mg Tablet PO 1 tab Q4H PRN Administration Moderate Pain (4-6) Amlodipine Besylate 10 mg 12/10/19 09:00 12/16/19 08:14 Amlodipine 10 Mg Tab PO 10 mg DAILY PIERCE Administration Atenolol 50 mg 12/10/19 09:00 12/16/19 08:13 Atenolol 50 Mg Tab PO 50 mg DAILY PIERCE Administration Atorvastatin Calcium 40 mg 12/10/19 21:00 12/15/19 20:13 Atorvastatin Calcium 40 Mg Tab PO 40 mg HS PIERCE Administration Hydralazine HCl 50 mg 12/09/19 21:00 12/16/19 08:14 Hydralazine 25 Mg Tab PO 50 mg BID PIERCE Administration Sodium Chloride 1,000 mls @ 75 mls/hr 12/13/19 12:45 12/16/19 08:15 Normal Saline 0.9% IV Not Given .[id number] PIERCE Iron/Minerals/Multivitamins 1 tab 12/10/19 09:00 12/16/19 08:14 Multivitamin W/ Minerals 1 Tab PO 1 tab DAILY PIERCE Administration Pantoprazole Sodium 40 mg 12/09/19 09:00 12/16/19 08:14 Pantoprazole 40 Mg Tab PO 40 mg DAILY PIERCE Administration Sodium Chloride 10 ml 12/08/19 21:00 12/16/19 08:15 Flush - Normal Saline 10 Ml Syringe IVF 10 ml Q12HR PIERCE Administration Sodium Chloride 10 ml 12/08/19 13:00 12/08/19 21:54 Flush - Normal Saline 10 Ml Syringe IVF 10 ml PRN PRN Administration Saline Flush - Exam General Appearance: NAD, awake alert Eye: PERRL ENT: normocephalic atraumatic Neck: supple Heart: RRR Respiratory: CTAB, normal chest expansion Gastrointestinal: soft, normal bowel sounds, no palpable masses Skin - other findings: No skin color changes over the knees. Neurological: no focal deficits Musculoskeletal - other findings: Bilateral knees swollen right more so than left. Warm to touch. Psychiatric: A&O x 3 Hosp A/P - Plan (1) Fever Code(s): R50.9 - FEVER, UNSPECIFIED Status: Resolved Qualifiers: Fever type: unspecified Qualified Code(s): R50.9 - Fever, unspecified (2) Anemia Code(s): D64.9 - ANEMIA, UNSPECIFIED Status: Chronic Qualifiers: Anemia type: unspecified type Qualified Code(s): D64.9 - Anemia, unspecified (3) FTT (failure to thrive) in adult Status: Chronic (4) HTN (hypertension) Code(s): I10 - ESSENTIAL (PRIMARY) HYPERTENSION Status: Chronic Qualifiers: Hypertension type: essential hypertension Qualified Code(s): I10 - Essential (primary) hypertension (5) Moderate protein malnutrition Code(s): E44.0 - MODERATE PROTEIN-CALORIE MALNUTRITION Status: Chronic (6) TALON (acute kidney injury) Code(s): N17.9 - ACUTE KIDNEY FAILURE, UNSPECIFIED Status: Resolved (7) Moderate dehydration Code(s): E86.0 - DEHYDRATION Status: Resolved - Plan The patient presented with fever of unknown origin. He was managed with antibiotics empirically which led to resolution of the fever initially but it seems like his fever has recurred. -bilateral knee pain and his knees are swollen and tender. There is no erythema or warmth. ID were consulted and they recommended management for gout or pseudogout and monitor the patient's response. Ibuprofen and colchicine were initiated, however, the patient's creatinine level has worsened since then. --On IV steroid and colchicine---------------> creatinine on Tuesday 1.48 -ambulates -Uric acid level at 8.9 in the context of elevated creatinine around 1.48. Uric acid level not significant enough to consider this is oliva gout flareup. Frazier pinky we cannot confirm that unless we have aspiration of the serous fluid of the knee and to check for crystals. 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 - Palpation did not reveal any loculated effusion. I talked to the orthopedic consulting group analyst who would likely see him to check whether swelling/fluid aspirated to check further fluid studies, Including crystals. - Had a knee x-ray done at 24 2 that showed a lot of arthritic changes without any acute injury. No joint effusion noted at that time. -We may have to discontinue the prednisone if low threshold for any crystal induced arthropathy with pre-existing osteoarthritic changes. Right upper lobe pleural-based pulmonary nodule of 5 mm --Since the nodule is less than 8 mm this can be followed in the outpatient setting every [address] chest. 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 No steroid injection warranted at this time. He can follow-up i orthopedic clinic as outpatient as needed. -Appreciate Dr. Khoury's input. Physical therapy on board. Disposition--patient lives alone for the most part. He has a son lives nearby.
[2019-12-16 18:01] LABS: CCP IgG Antibody 0.5 EliAU/mL (<7 Negative); EliA RAS New Method **** NEW METHOD ****; Rheumatoid Factor IgA Antibody 4.4 IU/mL (<14 Negative); Rheumatoid Factor IgM Antibody Less than 0.5 IU/mL (<3.5 Negative)
[2019-12-16] MEDS: Atorvastatin Calcium 40 MG TAB PO SCH (19:39)
[2019-12-17] MEDS: Amlodipine 10 MG TAB PO SCH (09:01)
[2019-12-17] MEDS: Multivitamin W/ Minerals 1 TAB PO SCH (09:01)
[2019-12-17] MEDS: Atenolol 50 MG TAB PO SCH (09:01)
[2019-12-17] MEDS: Sodium Chloride 0.9% 1,000 ML IV SCH ×2 (09:02→19:43)
[2019-12-17] MEDS: hydrALAZINE 25 MG TAB PO SCH ×2 (09:06→19:42)
--- NOTE | 2019-12-17 16:35 | PDOC.DS.DS ---
Provider - Provider Date of Admission: 12/06/19 20:24 Admitting Provider: Clem Balbuena MD Primary Care Physician: Randal Webster Course - Hospital Course Hospital Course: 84-year-old presented with the fever and bilateral knee pain and swelling (1) Fever Code(s): R50.9 - FEVER, UNSPECIFIED Status: Resolved Qualifiers: Fever type: unspecified Qualified Code(s): R50.9 - Fever, unspecified (2) Anemia Code(s): D64.9 - ANEMIA, UNSPECIFIED Status: Chronic Qualifiers: Anemia type: unspecified type Qualified Code(s): D64.9 - Anemia, unspecified (3) FTT (failure to thrive) in adult Status: Chronic (4) HTN (hypertension) Code(s): I10 - ESSENTIAL (PRIMARY) HYPERTENSION Status: Chronic Qualifiers: Hypertension type: essential hypertension Qualified Code(s): I10 - Essential (primary) hypertension (5) Moderate protein malnutrition Code(s): E44.0 - MODERATE PROTEIN-CALORIE MALNUTRITION Status: Chronic (6) TALON (acute kidney injury) Code(s): N17.9 - ACUTE KIDNEY FAILURE, UNSPECIFIED Status: Resolved (7) Moderate dehydration Code(s): E86.0 - DEHYDRATION Status: Resolved The patient presented with fever, is likely due to inflammatory origin rather than infectious source. He was managed with antibiotics empirically which led to resolution of the fever initially but it seems like his fever has recurred. -bilateral knee pain and his knees are swollen and tender. There is no erythema or warmth. ID was consulted and they recommended management for gout or pseudogout and monitor the patient's response. Ibuprofen and colchicine were initiated, however, the patient's creatinine level has worsened since then. --On IV steroid and colchicine---------------> creatinine on Tuesday 1.48 -Uric acid level at 8.9 in the context of elevated creatinine around 1.48. -Presumptively pseudogout has been diagnosed. Pseudogout on pre-existing osteoarthritis of the knees -Continue with supportive management including analgesic as needed. No steroid injection warranted at this time. He can follow-up i orthopedic clinic as outpatient as needed. -Appreciate Dr. Khoury's input. Started with prednisone for a short course. His rheumatoid factor and cyclic citrulline peptide titers were insignificant level. Probable severe degenerative arthritis of the knees and coexisting pseudogout - Had a knee x-ray done at 24 2 that showed a lot of arthritic changes without any acute injury. Right upper lobe pleural-based pulmonary nodule of 5 mm --Since the nodule is less than 8 mm this can be followed in the outpatient setting every [address] chest. L2 vertebral body indeterminate age compression Physical therapy ongoing at the rehab facility. Disposition--patient lives alone for the most part. He has a son lives nearby. he is transferred to rehab today. Covid negative. Resuscitation Status: 12/06/19 20:10 Resuscitation Status Routine Resuscitation Status: FULL: Full Resuscitation - Labs Lab Results: 12/10/19 05:16 12/14/19 11:09 - Physical Exam Vitals: Vital Signs (12 hours) Temp Pulse Resp BP BP Pulse Ox 12/17/19 09:06 72 157/64 H 12/17/19 09:01 72 157/64 H 12/17/19 08:00 97 12/17/19 07:08 98.7 F 72 18 157/64 H 97 Weight Admit Weight 141 lb 3 oz Weight 141 lb 3 oz Physical Exam: The patient was seen and examined on the day of discharge. Doing well. He remains on the bed not much improvement in terms of the physical activity. He is comfortable going to the rehab today. He is bilateral knees looks the same there is no change. Plan - Discharge Medications Prescriptions: predniSONE 60 mg PO QAM-WM #21 tab Home Medications: Medication Instructions Recorded Confirmed Type Amlodipine [Norvasc] 10 mg PO DAILY 12/07/19 12/07/19 History Atenolol 50 mg PO DAILY 12/07/19 12/07/19 History Atorvastatin Calcium 40 mg PO DAILY 12/07/19 12/07/19 History Multivitamin With Minerals 1 tablet PO DAILY 12/07/19 12/07/19 History [Multiple Vitamin] hydrALAZINE [Apresoline] 50 mg PO BID 12/07/19 12/07/19 History Ferrous Sulfate 325 mg PO DAILY 12/12/19 12/12/19 History Acetaminophen [Tylenol Regular 650 mg PO Q4H PRN tab 12/13/19 Rx Strength] predniSONE 60 mg PO QAM-WM #21 tab 12/13/19 Rx Allergies: Penicillins Allergy (Verified 12/07/19 15:38) - Discharge Instructions Discharge Instructions:: DIET: HH SUPPLEMENT: ENSURE TID PT/OT EVALUATION AND TREATMENT Activity:: Activity as Tolerated Nourishment:: Heart Healthy Diet Therapies:: Not Applicable Equipment/Supplies:: Not Applicable IV Therapy:: Not Applicable - Follow up Plan Referrals: Randal Webster MD [Primary Care Provider] - 7 Days Yasmeen Guerrero PA-C [Allied Health Professional] - [facility] Quality - Care Measures CORE MEASURES:: N/A
[2019-12-17] MEDS: Atorvastatin Calcium 40 MG TAB PO SCH (19:43)
[2019-12-18] MEDS: Atenolol 50 MG TAB PO SCH (08:57)
[2019-12-18] MEDS: Multivitamin W/ Minerals 1 TAB PO SCH (08:57)
[2019-12-18] MEDS: Amlodipine 10 MG TAB PO SCH (08:57)
[2019-12-18] MEDS: hydrALAZINE 25 MG TAB PO SCH (08:59)
[2019-12-18] MEDS: Sodium Chloride 0.9% 1,000 ML IV SCH (09:02)
[2019-12-18 11:14] VITALS: TEMP 98.2
--- NOTE | 2019-12-18 12:31 | PDOC.HOSPP ---
- Subjective Encounter Date: 12/17/19 Encounter Time: 09:40 Subjective: Is doing well. Plan for discharge. - Objective Vital Signs & Weight: Vital Signs (12 hours) Temp Pulse Resp BP BP Pulse Ox 12/18/19 11:11 98.2 F 71 18 154/64 H 97 12/18/19 08:59 69 149/67 H 12/18/19 08:57 69 149/66 H 12/18/19 07:15 98.7 F 69 18 149/67 H 94 L Weight Admit Weight 141 lb 3 oz Weight 141 lb 3 oz I&O: 12/17/19 12/18/19 12/19/19 06:59 06:59 06:59 Intake Total 1998 Output Total 500 Balance 1498 Result Diagrams: 12/10/19 05:16 12/14/19 11:09 Hospitalist ROS - Medication Medications: Active Medications Generic Name Dose Route Start Last Admin Trade Name Freq PRN Reason Stop Dose Admin Acetaminophen 650 mg 12/06/19 20:10 12/12/19 21:09 Acetaminophen 325 Mg Tab PO 650 mg Q4H PRN Administration Headache/Fever/Mild Pain (1-3) Hydrocodone Bitart/Acetaminophen 1 tab 12/10/19 07:49 12/16/19 11:29 Hydrocodone/Acetaminophen 5/325 Mg Tablet PO 1 tab Q4H PRN Administration Moderate Pain (4-6) Amlodipine Besylate 10 mg 12/10/19 09:00 12/18/19 08:57 Amlodipine 10 Mg Tab PO 10 mg DAILY PIERCE Administration Atenolol 50 mg 12/10/19 09:00 12/18/19 08:57 Atenolol 50 Mg Tab PO 50 mg DAILY PIERCE Administration Atorvastatin Calcium 40 mg 12/10/19 21:00 12/17/19 19:43 Atorvastatin Calcium 40 Mg Tab PO 40 mg HS PIERCE Administration Hydralazine HCl 50 mg 12/09/19 21:00 12/18/19 08:59 Hydralazine 25 Mg Tab PO 50 mg BID PIERCE Administration Sodium Chloride 1,000 mls @ 75 mls/hr 12/13/19 12:45 12/18/19 09:02 Normal Saline 0.9% IV 1,000 mls .[id number] PIERCE Administration Iron/Minerals/Multivitamins 1 tab 12/10/19 09:00 12/18/19 08:57 Multivitamin W/ Minerals 1 Tab PO 1 tab DAILY PIERCE Administration Pantoprazole Sodium 40 mg 12/09/19 09:00 12/18/19 08:57 Pantoprazole 40 Mg Tab PO 40 mg DAILY PIERCE Administration Sodium Chloride 10 ml 12/08/19 21:00 12/18/19 08:59 Flush - Normal Saline 10 Ml Syringe IVF Not Given Q12HR PIERCE Sodium Chloride 10 ml 12/08/19 13:00 12/08/19 21:54 Flush - Normal Saline 10 Ml Syringe IVF 10 ml PRN PRN Administration Saline Flush - Exam General Appearance: NAD, awake alert ENT: normocephalic atraumatic Neck: supple Heart: RRR Respiratory: CTAB, normal chest expansion Gastrointestinal: soft, normal bowel sounds Hosp A/P - Plan (1) Fever Code(s): R50.9 - FEVER, UNSPECIFIED Status: Resolved Qualifiers: Fever type: unspecified Qualified Code(s): R50.9 - Fever, unspecified (2) Anemia Code(s): D64.9 - ANEMIA, UNSPECIFIED Status: Chronic Qualifiers: Anemia type: unspecified type Qualified Code(s): D64.9 - Anemia, unspecified (3) FTT (failure to thrive) in adult Status: Chronic (4) HTN (hypertension) Code(s): I10 - ESSENTIAL (PRIMARY) HYPERTENSION Status: Chronic Qualifiers: Hypertension type: essential hypertension Qualified Code(s): I10 - Essential (primary) hypertension (5) Moderate protein malnutrition Code(s): E44.0 - MODERATE PROTEIN-CALORIE MALNUTRITION Status: Chronic (6) TALON (acute kidney injury) Code(s): N17.9 - ACUTE KIDNEY FAILURE, UNSPECIFIED Status: Resolved (7) Moderate dehydration Code(s): E86.0 - DEHYDRATION Status: Resolved - Plan The patient presented with fever of unknown origin. He was managed with antibiotics empirically which led to resolution of the fever initially but it seems like his fever has recurred. -bilateral knee pain and his knees are swollen and tender. There is no erythema or warmth. ID were consulted and they recommended management for gout or pseudogout and monitor the patient's response. Ibuprofen and colchicine were initiated, however, the patient's creatinine level has worsened since then. --On IV steroid and colchicine---------------> creatinine on Tuesday 1.48 -ambulates -Uric acid level at 8.9 in the context of elevated creatinine around 1.48. Uric acid level not significant enough to consider this is oliva gout flareup. However we cannot confirm that unless we have aspiration of the serous fluid of the knee and to check for crystals. 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 - Palpation did not reveal any loculated effusion. I talked to the orthopedic fire control technician g who would likely see him to check whether swelling/fluid aspirated to check further fluid studies, Including crystals. - Had a knee x-ray done at 24 2 that showed a lot of arthritic changes without any acute injury. No joint effusion noted at that time. -We may have to discontinue the prednisone if low threshold for any crystal induced arthropathy with pre-existing osteoarthritic changes. Right upper lobe pleural-based pulmonary nodule of 5 mm --Since the nodule is less than 8 mm this can be followed in the outpatient setting every [address] chest. 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 No steroid injection warranted at this time. He can follow-up i orthopedic clinic as outpatient as needed. -Appreciate Dr. Khoury's input. Physical therapy on board. Disposition--patient lives alone for the most part. He has a son lives nearby. Plan for discharge on .
--- NOTE | 2019-12-18 12:33 | PDOC.HOSPP ---
- Subjective Encounter Date: 12/18/19 Encounter Time: 10:20 Subjective: Patient did not get discharged to there is a delay. He will be going to the rehab today. - Objective Vital Signs & Weight: Vital Signs (12 hours) Temp Pulse Resp BP BP Pulse Ox 12/18/19 11:11 98.2 F 71 18 154/64 H 97 12/18/19 08:59 69 149/67 H 12/18/19 08:57 69 149/66 H 12/18/19 07:15 98.7 F 69 18 149/67 H 94 L Weight Admit Weight 141 lb 3 oz Weight 141 lb 3 oz I&O: 12/17/19 12/18/19 12/19/19 06:59 06:59 06:59 Intake Total 1998 Output Total 500 Balance 1498 Result Diagrams: 12/10/19 05:16 12/14/19 11:09 Hospitalist ROS - Medication Medications: Active Medications Generic Name Dose Route Start Last Admin Trade Name Freq PRN Reason Stop Dose Admin Acetaminophen 650 mg 12/06/19 20:10 12/12/19 21:09 Acetaminophen 325 Mg Tab PO 650 mg Q4H PRN Administration Headache/Fever/Mild Pain (1-3) Hydrocodone Bitart/Acetaminophen 1 tab 12/10/19 07:49 12/16/19 11:29 Hydrocodone/Acetaminophen 5/325 Mg Tablet PO 1 tab Q4H PRN Administration Moderate Pain (4-6) Amlodipine Besylate 10 mg 12/10/19 09:00 12/18/19 08:57 Amlodipine 10 Mg Tab PO 10 mg DAILY PIERCE Administration Atenolol 50 mg 12/10/19 09:00 12/18/19 08:57 Atenolol 50 Mg Tab PO 50 mg DAILY PIERCE Administration Atorvastatin Calcium 40 mg 12/10/19 21:00 12/17/19 19:43 Atorvastatin Calcium 40 Mg Tab PO 40 mg HS PIERCE Administration Hydralazine HCl 50 mg 12/09/19 21:00 12/18/19 08:59 Hydralazine 25 Mg Tab PO 50 mg BID PIERCE Administration Sodium Chloride 1,000 mls @ 75 mls/hr 12/13/19 12:45 12/18/19 09:02 Normal Saline 0.9% IV 1,000 mls .[id number] PIERCE Administration Iron/Minerals/Multivitamins 1 tab 12/10/19 09:00 12/18/19 08:57 Multivitamin W/ Minerals 1 Tab PO 1 tab DAILY PIERCE Administration Pantoprazole Sodium 40 mg 12/09/19 09:00 12/18/19 08:57 Pantoprazole 40 Mg Tab PO 40 mg DAILY PIERCE Administration Sodium Chloride 10 ml 12/08/19 21:00 12/18/19 08:59 Flush - Normal Saline 10 Ml Syringe IVF Not Given Q12HR PIERCE Sodium Chloride 10 ml 12/08/19 13:00 12/08/19 21:54 Flush - Normal Saline 10 Ml Syringe IVF 10 ml PRN PRN Administration Saline Flush - Exam General Appearance: NAD, awake alert Eye: PERRL ENT: normocephalic atraumatic Neck: supple Heart: RRR Respiratory: CTAB, normal chest expansion Gastrointestinal: soft, normal bowel sounds Hosp A/P - Plan (1) Fever Code(s): R50.9 - FEVER, UNSPECIFIED Status: Resolved Qualifiers: Fever type: unspecified Qualified Code(s): R50.9 - Fever, unspecified (2) Anemia Code(s): D64.9 - ANEMIA, UNSPECIFIED Status: Chronic Qualifiers: Anemia type: unspecified type Qualified Code(s): D64.9 - Anemia, unspecified (3) FTT (failure to thrive) in adult Status: Chronic (4) HTN (hypertension) Code(s): I10 - ESSENTIAL (PRIMARY) HYPERTENSION Status: Chronic Qualifiers: Hypertension type: essential hypertension Qualified Code(s): I10 - Essential (primary) hypertension (5) Moderate protein malnutrition Code(s): E44.0 - MODERATE PROTEIN-CALORIE MALNUTRITION Status: Chronic (6) TALON (acute kidney injury) Code(s): N17.9 - ACUTE KIDNEY FAILURE, UNSPECIFIED Status: Resolved (7) Moderate dehydration Code(s): E86.0 - DEHYDRATION Status: Resolved - Plan The patient presented with fever of unknown origin. He was managed with antibiotics empirically which led to resolution of the fever initially but it seems like his fever has recurred. -bilateral knee pain and his knees are swollen and tender. There is no erythema or warmth. ID were consulted and they recommended management for gout or pseudogout and monitor the patient's response. Ibuprofen and colchicine were initiated, however, the patient's creatinine level has worsened since then. --On IV steroid and colchicine---------------> creatinine on Tuesday 1.48 -ambulates -Uric acid level at 8.9 in the context of elevated creatinine around 1.48. Uric acid level not significant enough to consider this is oliva gout flareup. However we cannot confirm that unless we have aspiration of the serous fluid of the knee and to check for crystals. 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 - Palpation did not reveal any loculated effusion. I talked to the orthopedic vocational rehabilitation administrator who would likely see him to check whether swelling/fluid aspirated to check further fluid studies, Including crystals. - Had a knee x-ray done at 24 2 that showed a lot of arthritic changes without any acute injury. No joint effusion noted at that time. -We may have to discontinue the prednisone if low threshold for any crystal induced arthropathy with pre-existing osteoarthritic changes. Right upper lobe pleural-based pulmonary nodule of 5 mm --Since the nodule is less than 8 mm this can be followed in the outpatient setting every [address] chest. 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 No steroid injection warranted at this time. He can follow-up i orthopedic clinic as outpatient as needed. -Appreciate Dr. Khoury's input. Physical therapy on board. Disposition--patient lives alone for the most part. He has a son lives nearby. Plan for discharge on second. 3rd Line discharge orders are completed and he would likely be transferring today
[2019-12-18 12:38] VITALS: BP 149/67
--- NOTE | 2019-12-19 11:44 | PQF ---
CLINICAL DOCUMENTATION CLARIFICATION FORM: Dear Dr. Singh Date: 12/19/2019 Please exercise your independent, professional judgment in responding to the clarification form. Clinical indicators are provided on the bottom of this form for your review. Please check appropriate box(es) to clarify if the following diagnosis has been ruled in our ruled out: Sepsis [ ] Ruled in diagnosis [ ] Continue to treat [ ] Resolved [ x ] Ruled out diagnosis [ ] Improving [ ] Cannot rule out diagnosis [ ] Other diagnosis [ ] Unable to determine In addition, please specify: Present on Admission (POA): [ ] Yes [ ] No [ ] Unable to determine For continuity of documentation, please document condition throughout progress notes and discharge summary. Thank You. To be completed by CDI/Coding staff for physician review: CLINICAL INDICATORS - SIGNS / SYMPTOMS / LABS / RESULTS AND LOCATION IN MR *H&P 12/05 ([facility]) HPI transferred from [place] ER for possible sepsis. Initially the pt's VS's at outside hosp. were normotensive with marked tachycardia at 102. Creatinine was 1.5 and glucose was 200 without anion gap. Lab: WBC 11.4 Assessment: Suspected sepsis?? No obvious source at this time. TALON *12/06 LAB ([facility]) Neutrophils % 81.0 Lymphocytes % 9.9 *12/07 pn (Karthikadeeshan) A/P: fever of 100, await cx results, ? l knee bursitis/ septic arthritis/ pseudogout *12/10 Consult (Andrea). HPI: pt had temp. elevation of 100.8 on admission and now 101 x2 Discussion: Differential dx includes gout vs. pseudogout. Infectious arthropathy is less likely. *12/16 DC summary (Samantha) Hosp. Course. the pt presented with fever, is likely due to inflammatory origin rather that infectious source. Presumptively pseudogout has been diagnosed. 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 RISK FACTORS / RESULTS AND LOCATION IN MR H&P 12/05 ([facility]) 84 yo with PMH HTN, hyperparathyroidism. 12/06 pn (Karthikadeeshmindi) A/P: TALON. Fever.Moderate protein malnutrition. 12/14 pn (Zissimos) known preexisting osteoarthritis of both knees TREATMENTS / RESULTS AND LOCATION IN MR H&P 12/05 (Esha) Plan: The pt was given IV abx in the ER 12/07 pn (Ean) start on levaquin in view of persistent off and on fever (12/07-12/11) 12/11 ID Consult Thank you, iLsa Savage, RN, BSN [email or web address] This is a permanent part of the Medical Record [facility]
--- NOTE | 2019-12-21 04:04 | PQF ---
CLINICAL DOCUMENTATION CLARIFICATION FORM: Dear : Maykel Merritt Date / Time: 12/21/2019 8735 Please exercise your independent, professional judgment in responding to the clarification form. Clinical indicators are provided on the bottom of this form for your review In your clinical opinion based on clinical findings below, can you please identify the etiology of Fever if due to: Please check appropriate box(es): [ x] Pseudogout [ ] Osteoarthirtis [ ] Other diagnosis [ ] Unable to determine Physician Signature: Date/Time: For continuity of documentation, please document condition throughout progress notes and discharge summary. Thank You. 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 left knee bursitis/septic arthritis/pseudogout PN 12/07 [X] Xray of both knees shows signs of severe OA with pseudogout PN 12/08 Present Risk Factors Results and Location in Medical Record [X] 84 year-old Male H&P p1 12/05 Dr Balbuena [X] HTN H&P p1 12/05 Dr Balbuena [X] Osteoarthitis DS p1 12/16 Dr Singh [X] Malnutrition DS p1 12/16 Dr Singh [X] Former Smoker ED Notes 12/05 Present Treatments Results and Location in Medical Record [X] Colchicine 0.6 mg oral APR 23 [X] Levaquin 500 mg oral APR 23 [X] IV NS 1L APR 23 [X] IV Vancomycin 1 gm APR 23 [X] Knee X-ray Imaging Dr Simms 12/07 [X] Orthopedic Consult Consult 12/07 CDS/Hepatology Physician Signature: Jessica Rosales Phone #: [phone] Date/Time: 12/21/2019 0404 This is a permanent part of the Medical Record [facility]
--- NOTE | 2019-12-22 15:02 | EKG ---
Test Reason : Blood Pressure : / mmHG Vent. Rate : 086 BPM Atrial Rate : 086 BPM P-R Int : 168 ms QRS Dur : 098 ms QT Int : 406 ms P-R-T Axes : 064 -30 064 degrees QTc Int : 485 ms Sinus rhythm with Premature atrial complexes with Abberant conduction Left axis deviation Septal infarct , age undetermined Abnormal ECG Confirmed by RAYMUNDO DEWEY ([id number]), restaurant expeditor SANDER COBOS ([id number]) on 12/22/2019 3:01:46 PM Referred By: Confirmed By:RAYMUNDO DEWEY
== END 2019-12-18 17:10 | DRG 554 ==
LOC: ERS 19:03 → ERHOLD 20:24 → T4-A 12-07 13:22
PROVIDERS: ADMIT Internal Medicine; ATTEND Internal Medicine
DX: M11.262 Other chondrocalcinosis, left knee (principal); N17.9 Acute kidney failure, unspecified; E44.0 Moderate protein-calorie malnutrition; M48.56XA Collapsed vertebra, not elsewhere classified, lumbar region, initial encounter for fracture; M11.261 Other chondrocalcinosis, right knee; Z20.828 Contact with and (suspected) exposure to other viral communicable diseases; E78.5 Hyperlipidemia, unspecified; I10 Essential (primary) hypertension; E21.3 Hyperparathyroidism, unspecified; D64.9 Anemia, unspecified; E86.0 Dehydration; R62.7 Adult failure to thrive; M17.0 Bilateral primary osteoarthritis of knee; R91.1 Solitary pulmonary nodule; Z87.891 Personal history of nicotine dependence; Z88.0 Allergy status to penicillin; Z68.21 Body mass index [BMI] 21.0-21.9, adult; Z79.899 Other long term (current) drug therapy
CPT/HCPCS: 36415; 71260; 74177; 80048; 80053; 82607; 82728; 82746; 83520; 83540; 83550; 84550; 85025; 86200; 93005; 93306; 96365; J3370; Q9967; S0028; U0002

== ENCOUNTER 2020-04-23 14:34 | Outpatient (CLI) | payer MEDICARE ==
[~2020-04-23 14:34] MED LIST: Iopamidol-370 76% 500 ML 1 ML ONE
== END 2020-04-23 14:35 | disposition home or self-care (01) ==
LOC: BICCT 14:34
PROVIDERS: ATTEND Family Medicine
DX: M25.511 Pain in right shoulder (principal); I77.1 Stricture of artery; M19.031 Primary osteoarthritis, right wrist; I65.21 Occlusion and stenosis of right carotid artery; M19.011 Primary osteoarthritis, right shoulder; M85.831 Other specified disorders of bone density and structure, right forearm; W19.XXXA Unspecified fall, initial encounter
CPT/HCPCS: 70498; 82565; Q9967

== ENCOUNTER 2021-06-13 19:58 | Inpatient (IN) | payer MEDICARE ==
[2021-06-13 22:29] VITALS: BMI 23.4
[2021-06-13] MEDS ORDERED: Ondansetron PF 4 MG/2 ML Vial IVP PRN (22:30)
[2021-06-13] MEDS ORDERED: Nitroglycerin 50 MG/250 ML BOT 250 ML IVPB SCH (22:45)
[2021-06-13 23:21] LABS: Magnesium 1.7 mg/dL (1.6-2.6)
[2021-06-13 23:39] LABS: Troponin I 0.055 ng/mL (< 0.028)
[2021-06-14] MEDS ORDERED: hydrALAZINE 25 MG TAB PO SCH ×2 (01:30→09:00)
[2021-06-14] MEDS ORDERED: cloNIDine 0.1 MG TAB PO SCH (01:30)
[2021-06-14 02:04] LABS: #Eosinphils 0.1 thou/uL (0.0-0.7); #Lymphocytes 2.1 thou/uL (1.20-3.40); #Monocytes 0.8 thou/uL (0.11-0.59); #Neutrophils 5.8 thou/uL (1.40-6.50); %Basophils 0.5 % (0.0-1.0); %Eosinophils 0.9 % (0.0-10.0); %Lymphocytes 23.5 % (21.0-51.0); %Monocytes 9.4 % (0.0-10.0); %Neutrophils 65.6 % (42.0-75.0); Mean Corpuscular HGB CONC 32.7 g/dL (32.0-36.0); Mean Corpuscular Hemoglobin 32.3 pg (27.0-31.0); Mean Corpuscular Volume 98.7 fL (78.0-98.0); Mean Platelet Volume 8.2 fL (7.4-10.4); Platelet Count 196 thou/uL (130-400); RBC Distribution Width 12.9 % (11.5-14.5); Red Blood Cell (RBC) Count 2.48 mill/uL (4.70-6.10); White Blood Cell (WBC) Count 8.8 thou/uL (4.8-10.8)
[2021-06-14 02:27] LABS: Phosphorus 3.6 mg/dL (2.3-4.7)
[2021-06-14 02:28] LABS: Anion Gap 13 mmol/L (10-20); BUN (Urea Nitrogen) 25 mg/dL (8.4-25.7); Calc. Creatinine Clearance 26 mL/min (70-130); Calcium 7.7 mg/dL (7.8-10.44); Carbon Dioxide 25 mmol/L (23-31); Chloride 105 mmol/L (98-107); Glucose 117 mg/dL (83-110); Magnesium 1.7 mg/dL (1.6-2.6); Potassium 3.1 mmol/L (3.5-5.1); Sodium 140 mmol/L (136-145)
[2021-06-14] MEDS ORDERED: Potassium Chloride 20 MEQ TAB PO SCH ×2 (04:15→10:00)
[2021-06-14] MEDS: Furosemide 20 MG/2 ML VIAL SLOW IVP SCH ×2 (04:44→14:58)
[2021-06-14] MEDS ORDERED: Cefepime 1 GM in Sodium Chloride 0.9% 100 ML IVPB SCH (06:00)
[2021-06-14] MEDS ORDERED: Magnesium 2 GM/50 ML(in water) 2 GM in Premix Bag 1 BAG IVPB SCH (07:00)
[2021-06-14 08:03] LABS: SARS-CoV-2 NAA Rapid Test Not Detected (NotDetected)
[2021-06-14] MEDS: Multivitamin W/ Minerals 1 TAB PO SCH (08:46)
[2021-06-14] MEDS: Calcitriol 0.25 MCG CAP PO SCH (08:46)
[2021-06-14] MEDS: Aspirin 81 mg Enteric Coated Tablet PO SCH (08:46)
[2021-06-14] MEDS: Famotidine 20 MG TAB PO SCH (08:46)
[2021-06-14] MEDS: Atenolol 50 MG TAB PO SCH (08:46)
[2021-06-14] MEDS: Ferrous Sulfate 325 MG TAB PO SCH (08:46)
[2021-06-14] MEDS: hydrALAZINE 25 MG TAB PO SCH ×2 (08:47→20:24)
[2021-06-14] MEDS: Heparin 5,000 UNITS/ML VIAL SC SCH ×2 (08:52→20:23)
[2021-06-14] MEDS ORDERED: Lisinopril 20 MG TAB PO SCH (09:00)
[2021-06-14] MEDS ORDERED: Atorvastatin Calcium 40 MG TAB PO SCH (09:00)
[2021-06-14 09:05] LABS: Anion Gap 12 mmol/L (10-20); BUN (Urea Nitrogen) 23 mg/dL (8.4-25.7); Calc. Creatinine Clearance 27 mL/min (70-130); Carbon Dioxide 26 mmol/L (23-31); Chloride 105 mmol/L (98-107); Glucose 96 mg/dL (83-110); Potassium 3.1 mmol/L (3.5-5.1); Sodium 140 mmol/L (136-145)
[2021-06-14] MEDS ORDERED: Electrolyte Replacement Protocol 1 EACH FS SCH (09:34)
[2021-06-14] MEDS ORDERED: Albumin 25% 25 GM/100 ML BOT IVPB SCH (10:15)
[2021-06-14 11:32] LABS: HBSAg Index 0.24 S/CO (0-0.99); Hep B Surf Ag Non-Reactive S/CO (NonReactive); Hep C IgG Ab Non-Reactive (NonReactive); Hep C Index 0.03 S/CO (0-0.79)
[2021-06-14] MEDS: Albumin 25% 25 GM/100 ML BOT IVPB SCH ×2 (12:40→17:40)
[2021-06-14] MEDS: Atorvastatin Calcium 40 MG TAB PO SCH (12:43)
[2021-06-14] MEDS: Spironolactone 25 MG TAB PO SCH (12:44)
[2021-06-14] MEDS: hydrALAZINE 20 MG/ML VIAL SLOW IVP PRN ×2 (15:56→22:40)
[2021-06-14 16:32] LABS: Hemoglobin 7.4 g/dL (14.0-18.0)
[2021-06-14] MEDS: cloNIDine 0.1 MG TAB PO PRN (16:54)
[2021-06-14] MEDS: Acetaminophen 325 MG TAB PO PRN ×2 (16:57→22:40)
[2021-06-14 17:05] LABS: Creatinine, Urine 62.45 mg/dL (63-166)
[2021-06-15] MEDS: Albumin 25% 25 GM/100 ML BOT IVPB SCH ×2 (00:49→05:17)
[2021-06-15] MEDS ORDERED: hydrALAZINE 20 MG/ML VIAL SLOW IVP SCH ×2 (01:08→01:15)
[2021-06-15 04:47] LABS: #Eosinphils 0.2 thou/uL (0.0-0.7); #Lymphocytes 1.6 thou/uL (1.20-3.40); #Monocytes 0.6 thou/uL (0.11-0.59); %Basophils 0.5 % (0.0-1.0); %Eosinophils 2.2 % (0.0-10.0); %Lymphocytes 21.1 % (21.0-51.0); %Monocytes 8.6 % (0.0-10.0); %Neutrophils 67.7 % (42.0-75.0); Hemoglobin 7.4 g/dL (14.0-18.0); Mean Corpuscular HGB CONC 33.3 g/dL (32.0-36.0); Mean Corpuscular Hemoglobin 32.7 pg (27.0-31.0); Mean Corpuscular Volume 98.3 fL (78.0-98.0); Mean Platelet Volume 8.3 fL (7.4-10.4); Platelet Count 161 thou/uL (130-400); Red Blood Cell (RBC) Count 2.26 mill/uL (4.70-6.10); White Blood Cell (WBC) Count 7.4 thou/uL (4.8-10.8)
[2021-06-15] MEDS: cloNIDine 0.1 MG TAB PO PRN ×3 (05:17→19:42)
[2021-06-15] MEDS: Furosemide 20 MG/2 ML VIAL SLOW IVP SCH ×2 (05:17→15:51)
[2021-06-15 05:18] LABS: Anion Gap 12 mmol/L (10-20); BUN (Urea Nitrogen) 28 mg/dL (8.4-25.7); Calc. Creatinine Clearance 26 mL/min (70-130); Calcium 8.3 mg/dL (7.8-10.44); Carbon Dioxide 25 mmol/L (23-31); Chloride 104 mmol/L (98-107); Glucose 105 mg/dL (83-110); Potassium 3.2 mmol/L (3.5-5.1); Sodium 138 mmol/L (136-145)
[2021-06-15] MEDS ORDERED: Magnesium 2 GM/50 ML(in water) 2 GM in Premix Bag 1 BAG IVPB SCH (06:00)
[2021-06-15] MEDS ORDERED: Potassium Chloride 20 MEQ TAB PO SCH (06:00)
[2021-06-15] MEDS: hydrALAZINE 20 MG/ML VIAL SLOW IVP PRN ×4 (07:49→21:08)
[2021-06-15] MEDS: Heparin 5,000 UNITS/ML VIAL SC SCH ×2 (08:39→21:08)
[2021-06-15] MEDS: hydrALAZINE 25 MG TAB PO SCH ×3 (08:40→22:22)
[2021-06-15] MEDS: Atorvastatin Calcium 40 MG TAB PO SCH (08:40)
[2021-06-15] MEDS: Atenolol 50 MG TAB PO SCH (08:40)
[2021-06-15] MEDS: Aspirin 81 mg Enteric Coated Tablet PO SCH (08:40)
[2021-06-15] MEDS: Ferrous Sulfate 325 MG TAB PO SCH (08:40)
[2021-06-15] MEDS: Calcitriol 0.25 MCG CAP PO SCH (08:40)
[2021-06-15] MEDS: Famotidine 20 MG TAB PO SCH (08:40)
[2021-06-15] MEDS: Multivitamin W/ Minerals 1 TAB PO SCH (08:41)
[2021-06-15] MEDS ORDERED: Spironolactone 25 MG TAB PO SCH (08:45)
[2021-06-15] MEDS: Spironolactone 25 MG TAB PO SCH (08:51)
[2021-06-15] MEDS ORDERED: hydrALAZINE 25 MG TAB PO SCH (12:00)
[2021-06-15] MEDS: Acetaminophen 325 MG TAB PO PRN (15:51)
[2021-06-15] MEDS: cefTRIAXone\\ROCEPHIN 1 GM in Sodium Chloride 0.9% 100 ML IVPB SCH (17:32)
[2021-06-16] MEDS: Acetaminophen 325 MG TAB PO PRN ×2 (03:34→14:47)
[2021-06-16 05:05] LABS: #Eosinphils 0.1 thou/uL (0.0-0.7); #Lymphocytes 1.5 thou/uL (1.20-3.40); #Monocytes 0.7 thou/uL (0.11-0.59); #Neutrophils 6.4 thou/uL (1.40-6.50); %Basophils 0.1 % (0.0-1.0); %Eosinophils 1.1 % (0.0-10.0); %Lymphocytes 17.4 % (21.0-51.0); %Monocytes 8.3 % (0.0-10.0); %Neutrophils 73.1 % (42.0-75.0); Hemoglobin 6.9 g/dL (14.0-18.0); Mean Corpuscular HGB CONC 32.9 g/dL (32.0-36.0); Mean Corpuscular Hemoglobin 32.4 pg (27.0-31.0); Mean Corpuscular Volume 98.5 fL (78.0-98.0); Mean Platelet Volume 8.7 fL (7.4-10.4); Platelet Count 166 thou/uL (130-400); RBC Distribution Width 13.1 % (11.5-14.5); Red Blood Cell (RBC) Count 2.12 mill/uL (4.70-6.10); White Blood Cell (WBC) Count 8.8 thou/uL (4.8-10.8)
[2021-06-16 05:14] LABS: Anion Gap 12 mmol/L (10-20); BUN (Urea Nitrogen) 30 mg/dL (8.4-25.7); Calc. Creatinine Clearance 22 mL/min (70-130); Calcium 8.2 mg/dL (7.8-10.44); Carbon Dioxide 26 mmol/L (23-31); Chloride 104 mmol/L (98-107); Glucose 121 mg/dL (83-110); Potassium 3.4 mmol/L (3.5-5.1); Sodium 139 mmol/L (136-145)
[2021-06-16] MEDS: Furosemide 20 MG/2 ML VIAL SLOW IVP SCH ×2 (05:18→14:47)
[2021-06-16] MEDS ORDERED: Magnesium 2 GM/50 ML(in water) 2 GM in Premix Bag 1 BAG IVPB SCH (06:30)
[2021-06-16] MEDS ORDERED: Potassium Chloride 20 MEQ TAB PO SCH (06:45)
[2021-06-16] MEDS: Atorvastatin Calcium 40 MG TAB PO SCH (08:13)
[2021-06-16] MEDS: hydrALAZINE 25 MG TAB PO SCH ×3 (08:13→20:36)
[2021-06-16] MEDS: Atenolol 50 MG TAB PO SCH (08:13)
[2021-06-16] MEDS: Calcitriol 0.25 MCG CAP PO SCH (08:13)
[2021-06-16] MEDS: Multivitamin W/ Minerals 1 TAB PO SCH (08:13)
[2021-06-16] MEDS: Aspirin 81 mg Enteric Coated Tablet PO SCH (08:13)
[2021-06-16] MEDS: Spironolactone 25 MG TAB PO SCH (08:13)
[2021-06-16] MEDS: Ferrous Sulfate 325 MG TAB PO SCH (08:13)
[2021-06-16] MEDS: Famotidine 20 MG TAB PO SCH (08:14)
[2021-06-16] MEDS: Heparin 5,000 UNITS/ML VIAL SC SCH ×2 (08:14→20:39)
[2021-06-16 14:18] LABS: IgA - Total IgA (Sendout) 166 mg/dL (61-437); Immunoglobulin - G (Sendout) 341 mg/dL (603-1613); Immunoglobulin - M (Sendout) 8 mg/dL (15-143)
[2021-06-16] MEDS: cefTRIAXone\\ROCEPHIN 1 GM in Sodium Chloride 0.9% 100 ML IVPB SCH (17:52)
[2021-06-16 18:21] LABS: Hemoglobin 8.2 g/dL (14.0-18.0)
[2021-06-16] MEDS: cloNIDine 0.1 MG TAB PO PRN (20:39)
[2021-06-16] MEDS: hydrALAZINE 20 MG/ML VIAL SLOW IVP PRN (23:42)
[2021-06-17] MEDS: cloNIDine 0.1 MG TAB PO PRN (02:57)
[2021-06-17 05:08] LABS: #Eosinphils 0.1 thou/uL (0.0-0.7); #Lymphocytes 1.3 thou/uL (1.20-3.40); #Monocytes 0.8 thou/uL (0.11-0.59); #Neutrophils 8.3 thou/uL (1.40-6.50); %Basophils 0.2 % (0.0-1.0); %Eosinophils 1.2 % (0.0-10.0); %Lymphocytes 12.4 % (21.0-51.0); %Monocytes 7.4 % (0.0-10.0); %Neutrophils 78.7 % (42.0-75.0); Hemoglobin 7.8 g/dL (14.0-18.0); Mean Corpuscular HGB CONC 32.8 g/dL (32.0-36.0); Mean Corpuscular Hemoglobin 32.1 pg (27.0-31.0); Mean Corpuscular Volume 97.7 fL (78.0-98.0); Mean Platelet Volume 8.7 fL (7.4-10.4); Platelet Count 187 thou/uL (130-400); RBC Distribution Width 13.1 % (11.5-14.5); Red Blood Cell (RBC) Count 2.45 mill/uL (4.70-6.10); White Blood Cell (WBC) Count 10.6 thou/uL (4.8-10.8)
[2021-06-17] MEDS: Furosemide 20 MG/2 ML VIAL SLOW IVP SCH ×2 (05:19→15:20)
[2021-06-17] MEDS: hydrALAZINE 20 MG/ML VIAL SLOW IVP PRN ×2 (05:19→16:37)
[2021-06-17 05:31] LABS: Anion Gap 13 mmol/L (10-20); BUN (Urea Nitrogen) 38 mg/dL (8.4-25.7); Calc. Creatinine Clearance 21 mL/min (70-130); Carbon Dioxide 26 mmol/L (23-31); Chloride 101 mmol/L (98-107); Glucose 129 mg/dL (83-110); Potassium 3.6 mmol/L (3.5-5.1); Sodium 136 mmol/L (136-145)
[2021-06-17] MEDS: Acetaminophen 325 MG TAB PO PRN (09:15)
[2021-06-17] MEDS: Atorvastatin Calcium 40 MG TAB PO SCH (09:16)
[2021-06-17] MEDS: Heparin 5,000 UNITS/ML VIAL SC SCH ×2 (09:16→20:24)
[2021-06-17] MEDS: Aspirin 81 mg Enteric Coated Tablet PO SCH (09:16)
[2021-06-17] MEDS: Spironolactone 25 MG TAB PO SCH (09:16)
[2021-06-17] MEDS: hydrALAZINE 25 MG TAB PO SCH ×3 (09:16→20:24)
[2021-06-17] MEDS: Famotidine 20 MG TAB PO SCH (09:16)
[2021-06-17] MEDS: Calcitriol 0.25 MCG CAP PO SCH (09:16)
[2021-06-17] MEDS: Multivitamin W/ Minerals 1 TAB PO SCH (09:16)
[2021-06-17] MEDS: Ferrous Sulfate 325 MG TAB PO SCH (09:17)
[2021-06-17] MEDS: Atenolol 50 MG TAB PO SCH (09:17)
[2021-06-17 14:16] LABS: Cytoplasmic (C-ANCA) <1:20 titer (Neg:<1:20); Myeloperoxidase AutoAbs <9.0 U/mL (0.0-9.0); Perinuclear (P-ANCA) <1:20 titer (Neg:<1:20); Proteinase-3 AutoAbs Less than 3.5 U/mL (0.0-3.5)
[2021-06-17] MEDS: Senokot 8.6 MG TAB PO PRN (16:37)
[2021-06-17] MEDS: cefTRIAXone\\ROCEPHIN 1 GM in Sodium Chloride 0.9% 100 ML IVPB SCH (16:38)
[2021-06-18 04:32] LABS: #Eosinphils 0.1 thou/uL (0.0-0.7); #Lymphocytes 1.5 thou/uL (1.20-3.40); #Monocytes 0.8 thou/uL (0.11-0.59); %Basophils 0.1 % (0.0-1.0); %Eosinophils 0.8 % (0.0-10.0); %Lymphocytes 14.6 % (21.0-51.0); %Monocytes 8.1 % (0.0-10.0); %Neutrophils 76.4 % (42.0-75.0); Hemoglobin 7.8 g/dL (14.0-18.0); Mean Corpuscular HGB CONC 33.1 g/dL (32.0-36.0); Mean Corpuscular Hemoglobin 32.5 pg (27.0-31.0); Mean Platelet Volume 8.7 fL (7.4-10.4); Platelet Count 181 thou/uL (130-400); RBC Distribution Width 12.8 % (11.5-14.5); Red Blood Cell (RBC) Count 2.41 mill/uL (4.70-6.10); White Blood Cell (WBC) Count 10.5 thou/uL (4.8-10.8)
[2021-06-18 04:42] LABS: Anion Gap 15 mmol/L (10-20); BUN (Urea Nitrogen) 44 mg/dL (8.4-25.7); Calc. Creatinine Clearance 20 mL/min (70-130); Calcium 8.2 mg/dL (7.8-10.44); Carbon Dioxide 26 mmol/L (23-31); Chloride 102 mmol/L (98-107); Glucose 113 mg/dL (83-110); Potassium 3.7 mmol/L (3.5-5.1); Sodium 139 mmol/L (136-145)
[2021-06-18] MEDS: cloNIDine 0.1 MG TAB PO PRN (05:00)
[2021-06-18] MEDS: Furosemide 20 MG/2 ML VIAL SLOW IVP SCH ×2 (05:04→13:03)
[2021-06-18] MEDS: Ferrous Sulfate 325 MG TAB PO SCH (09:21)
[2021-06-18] MEDS: hydrALAZINE 25 MG TAB PO SCH ×3 (09:21→21:22)
[2021-06-18] MEDS: Aspirin 81 mg Enteric Coated Tablet PO SCH (09:21)
[2021-06-18] MEDS: Spironolactone 25 MG TAB PO SCH (09:22)
[2021-06-18] MEDS: Atorvastatin Calcium 40 MG TAB PO SCH (09:22)
[2021-06-18] MEDS: Calcitriol 0.25 MCG CAP PO SCH (09:22)
[2021-06-18] MEDS: Famotidine 20 MG TAB PO SCH (09:22)
[2021-06-18] MEDS: Heparin 5,000 UNITS/ML VIAL SC SCH ×2 (09:23→21:22)
[2021-06-18] MEDS: Multivitamin W/ Minerals 1 TAB PO SCH (09:23)
[2021-06-18] MEDS: Acetaminophen 325 MG TAB PO PRN ×2 (09:31→21:22)
[2021-06-18] MEDS ORDERED: Atenolol 50 MG TAB PO SCH (12:00)
[2021-06-18 12:14] LABS: ANA Symphony (Qualitative) Negative (Negative); ANA Symphony (Quantitative) 0.1 Ratio (< 0.7 Negative)
[2021-06-18 13:24] LABS: Bacteria/HPF None Seen HPF (None Seen); Bilirubin Negative (Negative); Blood, Urine Negative (Negative); Clarity Clear (Clear); Glucose, Urine (Dipstick) 30 mg/dL (Negative); Ketone, Urine Negative (Negative); Leukocyte Negative Leu/uL (Negative); Nitrite Negative (Negative); Protein, Urine (Dipstick) 300 mg/dL (Neg-Trace); RBC/HPF 0-3 HPF (0-3); Specific Gravity, Urine 1.013 (1.002-1.036); Squamous Epithelial 0-3 HPF (0-3); Urobilinogen Normal mg/dL (Less than 2); WBC/HPF 0-3 HPF (0-3)
[2021-06-18 13:25] LABS: Urine Culture Reflex No No
[2021-06-18] MEDS ORDERED: predniSONE 5 MG TAB PO SCH (15:30)
[2021-06-18] MEDS: Colchicine 0.3 MG TAB PO SCH (21:21)
[2021-06-19] MEDS: hydrALAZINE 20 MG/ML VIAL SLOW IVP PRN ×2 (00:12→05:27)
[2021-06-19] MEDS: Senokot 8.6 MG TAB PO PRN (00:12)
[2021-06-19] MEDS: cloNIDine 0.1 MG TAB PO PRN (03:43)
[2021-06-19 04:18] LABS: #Lymphocytes 0.8 thou/uL (1.20-3.40); #Monocytes 0.5 thou/uL (0.11-0.59); #Neutrophils 8.5 thou/uL (1.40-6.50); %Basophils 0.1 % (0.0-1.0); %Eosinophils 0.1 % (0.0-10.0); %Lymphocytes 8.4 % (21.0-51.0); %Monocytes 5.2 % (0.0-10.0); %Neutrophils 86.3 % (42.0-75.0); Hemoglobin 8.1 g/dL (14.0-18.0); Mean Corpuscular HGB CONC 33.1 g/dL (32.0-36.0); Mean Corpuscular Hemoglobin 32.7 pg (27.0-31.0); Mean Corpuscular Volume 98.8 fL (78.0-98.0); Mean Platelet Volume 8.8 fL (7.4-10.4); Platelet Count 174 thou/uL (130-400); RBC Distribution Width 12.9 % (11.5-14.5); Red Blood Cell (RBC) Count 2.47 mill/uL (4.70-6.10); White Blood Cell (WBC) Count 9.9 thou/uL (4.8-10.8)
[2021-06-19 04:43] LABS: Anion Gap 14 mmol/L (10-20); BUN (Urea Nitrogen) 57 mg/dL (8.4-25.7); Calc. Creatinine Clearance 20 mL/min (70-130); Calcium 8.2 mg/dL (7.8-10.44); Carbon Dioxide 27 mmol/L (23-31); Chloride 101 mmol/L (98-107); Glucose 150 mg/dL (83-110); Potassium 3.7 mmol/L (3.5-5.1); Sodium 138 mmol/L (136-145)
[2021-06-19] MEDS: Furosemide 20 MG/2 ML VIAL SLOW IVP SCH ×2 (04:57→15:00)
[2021-06-19] MEDS ORDERED: predniSONE 5 MG TAB PO SCH (08:00)
[2021-06-19] MEDS ORDERED: Atenolol 50 MG TAB PO SCH (09:00)
[2021-06-19] MEDS: hydrALAZINE 25 MG TAB PO SCH ×2 (09:21→15:00)
[2021-06-19] MEDS: Aspirin 81 mg Enteric Coated Tablet PO SCH (09:21)
[2021-06-19] MEDS: Famotidine 20 MG TAB PO SCH (09:21)
[2021-06-19] MEDS: Calcitriol 0.25 MCG CAP PO SCH (09:21)
[2021-06-19] MEDS: Multivitamin W/ Minerals 1 TAB PO SCH (09:22)
[2021-06-19] MEDS: Ferrous Sulfate 325 MG TAB PO SCH (09:22)
[2021-06-19] MEDS: Atorvastatin Calcium 40 MG TAB PO SCH (09:23)
[2021-06-19] MEDS: Heparin 5,000 UNITS/ML VIAL SC SCH (09:23)
[2021-06-19] MEDS: Spironolactone 25 MG TAB PO SCH (09:23)
[2021-06-19] MEDS: Acetaminophen 325 MG TAB PO PRN (09:25)
[2021-06-19] MEDS: Colchicine 0.3 MG TAB PO SCH (09:25)
[2021-06-19 15:07] VITALS: BP 149/69; TEMP 98.2
== END 2021-06-19 15:25 | disposition home or self-care (01) | DRG 683 ==
LOC: CCU 19:58 → 2NO 06-14 21:47
PROVIDERS: ADMIT Internal Medicine; ATTEND Internal Medicine
PROC: 30233N1 Transfusion of Nonautologous Red Blood Cells into Peripheral Vein, Percutaneous Approach (ICD-10-PCS; principal; 2021-06-16)
DX: N17.9 Acute kidney failure, unspecified (principal); I24.8 Other forms of acute ischemic heart disease; M10.9 Gout, unspecified; N25.81 Secondary hyperparathyroidism of renal origin; M13.89 Other specified arthritis, multiple sites; I16.0 Hypertensive urgency; Z51.5 Encounter for palliative care; Z20.822 Contact with and (suspected) exposure to COVID-19; E87.70 Fluid overload, unspecified; I12.9 Hypertensive chronic kidney disease with stage 1 through stage 4 chronic kidney disease, or unspecified chronic kidney disease; E78.5 Hyperlipidemia, unspecified; N18.30 Chronic kidney disease, stage 3 unspecified; E87.6 Hypokalemia; D63.1 Anemia in chronic kidney disease; I73.9 Peripheral vascular disease, unspecified; Z88.0 Allergy status to penicillin; Z79.52 Long term (current) use of systemic steroids; Z79.899 Other long term (current) drug therapy; Z82.49 Family history of ischemic heart disease and other diseases of the circulatory system; Z87.891 Personal history of nicotine dependence
CPT/HCPCS: 36415; 36430; 71045; 76770; 80048; 81001; 82088; 82570; 83520; 83735; 84100; 84156; 84244; 84443; 84484; 85025; 86037; 86038; 86225; 86334; 86335; 86803; 86850; 86900; 86901; 87040; 87340; 93306; 93970; 93975; J0360; J0696; J1644; J1940; J3475; J3490; J7512; P9016; P9047